=== PATIENT | female | born 1995 | race Caucasian/White ===

== ENCOUNTER → 2020-08-24 11:13 | Outpatient (BNVA) | payer SELFPAY | PROVIDERS: Family Provider Family Medicine; Visit Provider Nurse Practitioner Women's Health | DX: N92.6 Irregular menstruation, unspecified (principal); O20.0 Threatened abortion | CPT/HCPCS: 81025; 84702; 85025; 86900; 87491; 87591; 87661 ==

== ENCOUNTER → 2020-08-26 10:21 | Outpatient (BNVA) | payer BC, SELFPAY | PROVIDERS: Family Provider Family Medicine; Visit Provider Obstetrics & Gynecology | DX: O20.0 Threatened abortion (principal) | CPT/HCPCS: 84702 ==

== ENCOUNTER → 2020-08-31 08:28 | Outpatient (BNVA) | payer BC, SELFPAY | PROVIDERS: Family Provider Family Medicine; Visit Provider Nurse Practitioner Women's Health | DX: O20.0 Threatened abortion (principal) | CPT/HCPCS: 84702 ==

== ENCOUNTER → 2020-09-05 13:46 | Outpatient (BNVA) | payer BC, SELFPAY | PROVIDERS: Family Provider Family Medicine; Visit Provider Obstetrics & Gynecology | DX: O20.0 Threatened abortion (principal) | CPT/HCPCS: 84702 ==

== ENCOUNTER 2020-11-25 13:09 | Emergency (ER) | payer BC, SELFPAY ==
[2020-11-25 13:30] VITALS: BP 105/75; PULSE 128; RESP 22; TEMP 37.4; O2SAT 94; BMI 45.9
--- NOTE | 2020-11-25 13:51 | XR_ITS ---
WS: [id number] XR chest 1V portable [id number] REASON FOR EXAM: SOB, covid, tachy FINDINGS: The heart and mediastinum are within normal limits. Reticular interstitial changes seen in both lower lung couch. Bony thorax intact. XR/XR chest 1V portable [id number] IMPRESSION: Interstitial changes of unknown chronicity but compatible with acute/subacute p neumonitis.
--- NOTE | 2020-11-25 13:51 | ECG_ITS ---
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 Measurements Intervals [place] Rate: 99 P: 22 [place]: 148 QRS: 7 QRSD: 88 T: -3 QT: 322 QTc: 415 Interpretive Statements SINUS RHYTHM Compared to ECG 07/15/2015 00:14:18 Sinus tachycardia no longer present Electronically Signed On 11-25-2020 18:24:14 CDT by Sima West M.D. [email or web address]/NU/[id number] f
[2020-11-25 14:59] LABS: Basophils % 0.3 %; Eosinophils % 0.3 %; Hematocrit 43.8 % (37.0-47.0); Hemoglobin 14.2 g/dL (11.5-15.3); Lymphocytes # 1.8 10^3/uL (0.8-4.8); Lymphocytes % 30.8 %; Mean Corpuscular HGB Conc 32.4 g/dL (30.0-36.0); Mean Corpuscular Hemoglobin 26.5 pg (28.0-34.0); Mean Corpuscular Volume 81.9 fl (81-99); Mean Platelet Volume 12.1 fL (7.4-10.4); Monocytes # 0.3 10^3/uL (0.2-0.9); Monocytes % 5.6 %; Neutrophils # 3.68 10^3/uL (1.8-7.7); Nucleated Red Blood Cells % 0 %; Platelet Count 277 10^3/cmm (130-400); Red Blood Count 5.35 10^6/uL (4.1-5.3); Red Cell Distribution Width 13.3 % (12.1-15.1); White Blood Count 5.9 10^3/uL (4.0-10.0)
--- NOTE | 2020-11-25 15:02 | W.ED.COVID ---
HPI - COVID General: Chief Complaint: COVID symptoms Stated Complaint: COVID (+): COUGH, DIFF BREATHING Time Seen by Provider: 11/25/20 13:50 Triage information: No fever, cough or shortness of breath. No known COVID + exposure last 14 days History of Present Illness: HPI Narrative: Patient is a 25-year-old female no significant past medical history. She is diagnosed with COVID-19 1 week ago symptoms lasted 1 day before that this is a days ago. She is here with increasing shortness of breath. Stated that she went to outside clinic where she was noted have a pulse ox reading of 92. On arrival she was at 94 and on my exam she was at 97 with good waveform. Has had mild fevers chills aches retroorbital headache nausea no diarrhea vomiting altered mental status syncope or rash. Chart review shows that she was found to be at her last visit back in August. Not received monoclonal antibodies and she was not vaccinated COVID Results: No Data to Display Review of Systems General: Reports: 10 or more systems reviewed and unremarkable except in HPI and below PFSH ED PFSH: Medical History Irregular menses No pertinent past medical history neghx: htn,dm,thyroid,dvt/pe PCP: None Surgical History No pertinent past surgical history Family History Grandmother Diabetes Maternal Hypertension Maternal Thyroid disease Maternal Father Diabetes Denies family history of Colon cancer Ovarian cancer Heart disease Hypercholesteremia Breast cancer Uterine cancer Stroke Physical Exam Const: COMMON NORMALS: no acute distress, average body habitus, patient oriented x3, no limitations, alert and well nourished GENERAL APPEARANCE: cooperative, comfortable and ill appearing; not in distress and not anxious HENMT: COMMON NORMALS: normocephalic, atraumatic, hearing grossly normal bilaterally, external ears normal, EAC's normal, TM's normal bilaterally, Normal external nose present, Normal nasal mucous membranes and turbinates present, moist oral mucous membranes, oropharynx normal, dentition normal and gingiva normal HEAD & SCALP: normocephalic and atraumatic NOSE: Normal external nose present and Normal nasal mucous membranes and turbinates present EXTERNAL EAR: Yes external ears normal EXTERNAL AUDITORY CANAL: EAC's normal TYMPANIC MEMBRANE: TM's normal bilaterally Eye: COMMON NORMALS: Equal, round and reactive pupils present and EOMs intact bilaterally PUPIL: Yes Equal, round and reactive pupils present Resp: COMMON NORMALS: normal respiratory effort, No retractions, No use of accessory muscles and percussion normal AUSCULTATION: rhonchi PERCUSSION: percussion normal GI: COMMON NORMALS: Normal to inspection, nondistended, normoactive bowel sounds present, Soft to palpation and non-tender PALPATION: Yes Soft to palpation Extremity: COMMON NORMALS: normal to inspection, full ROM, capillary refill normal, no joint enlargement, no clubbing, cyanosis or edema, no calf tenderness and no pedal edema Neuro: COMMON NORMALS: patient oriented x3, CN's II-XII intact bilaterally, moves all extremities, no focal motor deficits, no sensory deficits noted and gait normal SENSORIUM/ORIENTATION: Yes alert Psych: COMMON NORMALS: mental status grossly normal, Normal thought process present, cooperative, normal affect, speech normal, activity/motor behavior normal, denies hallucinations, denies homicidal ideation and denies suicidal ideation SPEECH: Yes normal speech THOUGHT PROCESS: Normal thought process present Skin: COMMON NORMALS: no rashes or lesions noted, no wounds, turgor normal, no jaundice, no petechiae and no mottling GENERAL SKIN EXAM: no rashes or lesions noted and turgor normal Course ED course: Patient is oxygenating well on room air. Her D-dimer was just above the cutoff at less than thousand. According to years criteria as long she does not have any signs or symptoms of deep vein thrombosis or hemoptysis then cut off is raised 2000 and there is no need for further evaluation for pulmonary embolism. She does not have any unilateral calf tenderness she does not have a positive Homans' sign. She does not have any risk factors for DVT or PE other than . Therefore no evaluation for PE is indicated. Still waiting for chemistry and hCG Patient's hCG was negative she was aware that she had a miscarriage earlier. We discussed risks and benefits of monoclonal antibodies she does fall within the group for inclusion. She agreed to have the infusion. Because of difficulty of scheduling before the end of her 10 days we will go ahead and do that here and then discharge her afterwards. At this point she is not requiring any oxygen in no acute respiratory distress does not need any additional resuscitation and when she gets her infusion she is appropriate for discharge Vital Signs: Vital signs: Vital Signs Temperature 99.4 F 11/25/20 13:30 Pulse Rate 116 H 11/25/20 17:08 Respiratory Rate 16 11/25/20 15:04 Blood Pressure 142/87 11/25/20 17:08 Pulse Oximetry 96 11/25/20 17:08 MDM - COVID MDM Narrative: Medical decision making narrative: Patient is a 25-year-old 3-month female here with COVID-19 symptoms shortness of breath This patient is tachycardic and apparently did have some low oxygen saturations of symptoms concerns about possible pulmonary embolism. We will go ahead and get a D-dimer on her she is not requiring any oxygen is and not any respiratory distress on my exam. Will do a respiratory walk test to make sure she does not need any oxygen or tickly that she does not desat when exercising. We will recheck hCG if she is still would put her in the inclusion category 4 monoclonal antibodies which I would do anyway since her obesity. She is in no acute respiratory distress does not need any immediate airway support or resuscitation Lab Data: Labs: Lab Results 11/25/20 11/25/20 11/25/20 Range/Units 14:43 14:43 14:43 WBC 5.9 (4.0-10.0) 10^3/ uL RBC 5.35 H (4.1-5.3) 10^6/u L Hgb 14.2 (11.5-15.3) g/dL Hct 43.8 (37.0-47.0) % MCV 81.9 (81-99) fl MCH 26.5 L (28.0-34.0) pg MCHC 32.4 (30.0-36.0) g/dL RDW 13.3 (12.1-15.1) % Plt Count 277 (130-400) 10^3/c mm MPV 12.1 H (7.4-10.4) fL Neut % (Auto) 62.0 % Lymph % (Auto) 30.8 % [place] % (Auto) 5.6 % Eos % (Auto) 0.3 % Baso % (Auto) 0.3 % Neut # (Auto) 3.68 (1.8-7.7) 10^3/u L Lymph # (Auto) 1.8 (0.8-4.8) 10^3/u L [place] # (Auto) 0.3 (0.2-0.9) 10^3/u L Eos # (Auto) 0.0 (0.0-0.8) 10^3/u L Baso # (Auto) 0.0 (0.0-0.1) 10^3/u L Nucleated RBC % (a uto) 0 % Nucleated RBCs # 0.0 /100WBC D-Dimer (0-0.59) ug/mIFE U Sodium Cancelled Potassium Cancelled Chloride Cancelled Carbon Dioxide Cancelled Anion Gap Cancelled BUN Cancelled Creatinine Cancelled GFR Calculation Cancelled Glucose Cancelled Calculated Osmolal ity Cancelled Lactate 1.6 (0.5-2.2) mmol/L Calcium Cancelled Magnesium Cancelled Total Bilirubin Cancelled AST Cancelled ALT Cancelled Alkaline Phosphata se Cancelled Troponin T Gen 5 n g/L C-Reactive Protein Cancelled Total Protein Cancelled Albumin Cancelled Globulin Cancelled HCG, Qual 11/25/20 11/25/20 11/25/20 Range/Units 14:43 14:43 15:10 WBC (4.0-10.0) 10^3/ uL RBC (4.1-5.3) 10^6/u L Hgb (11.5-15.3) g/dL Hct (37.0-47.0) % MCV (81-99) fl MCH (28.0-34.0) pg MCHC (30.0-36.0) g/dL RDW (12.1-15.1) % Plt Count (130-400) 10^3/c mm MPV (7.4-10.4) fL Neut % (Auto) % Lymph % (Auto) % [place] % (Auto) % Eos % (Auto) % Baso % (Auto) % Neut # (Auto) (1.8-7.7) 10^3/u L Lymph # (Auto) (0.8-4.8) 10^3/u L [place] # (Auto) (0.2-0.9) 10^3/u L Eos # (Auto) (0.0-0.8) 10^3/u L Baso # (Auto) (0.0-0.1) 10^3/u L Nucleated RBC % (a uto) % Nucleated RBCs # /100WBC D-Dimer 0.72 H (0-0.59) ug/mIFE U Sodium Potassium Chloride Carbon Dioxide Anion Gap BUN Creatinine GFR Calculation Glucose Calculated Osmolal ity Lactate (0.5-2.2) mmol/L Calcium Magnesium Total Bilirubin AST ALT Alkaline Phosphata se Troponin T Gen 5 n g/L Cancelled C-Reactive Protein Total Protein Albumin Globulin HCG, Qual Cancelled 11/25/20 11/25/20 11/25/20 Range/Units 15:29 15:29 15:29 WBC (4.0-10.0) 10^3/ uL RBC (4.1-5.3) 10^6/u L Hgb (11.5-15.3) g/dL Hct (37.0-47.0) % MCV (81-99) fl MCH (28.0-34.0) pg MCHC (30.0-36.0) g/dL RDW (12.1-15.1) % Plt Count (130-400) 10^3/c mm MPV (7.4-10.4) fL Neut % (Auto) % Lymph % (Auto) % [place] % (Auto) % Eos % (Auto) % Baso % (Auto) % Neut # (Auto) (1.8-7.7) 10^3/u L Lymph # (Auto) (0.8-4.8) 10^3/u L [place] # (Auto) (0.2-0.9) 10^3/u L Eos # (Auto) (0.0-0.8) 10^3/u L Baso # (Auto) (0.0-0.1) 10^3/u L Nucleated RBC % (a uto) % Nucleated RBCs # /100WBC D-Dimer (0-0.59) ug/mIFE U Sodium 136 Potassium 4.4 Chloride 100 Carbon Dioxide 23 Anion Gap 17.4 BUN 7 Creatinine 0.5 GFR Calculation 149.1 H Glucose 130 H Calculated Osmolal ity 282 L Lactate (0.5-2.2) mmol/L Calcium 9.0 Magnesium 1.9 Total Bilirubin 0.2 AST 92 H ALT 106 H Alkaline Phosphata se 76 Troponin T Gen 5 n g/L 6 C-Reactive Protein 39.9 H Total Protein 7.4 Albumin 4.1 Globulin 3.3 HCG, Qual Negative COVID Results: No Data to Display Monoclonal Antibody - ED Inclusion/Exclusion Criteria age >/= 12 years obesity (BMI >25 or 85%til for age) not requiring hospitalization, not requiring oxygen (if not chronically on oxygen) and no increase oxygen requirement (if chronically on oxygen) Patient education patient/family/caregiver received/reviewed fact sheet, Emergency Use Authorization/unapproved drug status discussed with patient/family/caregiver, alternatives to this treatment discussed with patient/family/caregiver, risks and benefits of medication reviewed with patient/family/caregiver, patient/family/caregiver given opportunity for questions, which were answered and patient consents to receiving Monoclonal Antibody Treatment Plan for treatment Meets criteria for Monoclonal Antibody infusion Date of symptom(s) onset: 11/17/20 Where are the positive COVID test results, if positive?: Resulted in [facility] Ordering Monoclonal Antibody infusion for another day Discharge Plan Discharge Patient Disposition: Home Clinical Impression: COVID-19 Condition: Stable Prescriptions: No Action Tylenol Extra Strength 500 mg Tablet 1,000 mg PO Q4H PRN (Reason: Pain) RF: 0 ibuprofen 200 mg Tablet 800 mg PO Q4H PRN (Reason: Pain) RF: 0 Cough and Cold Formula Tablet 2 tab PO Q6H PRN (Reason: Congestion) RF: 0 Zinc With Vitamin C And D 1 tab PO DAILY RF: 0 Discharge Orders: Discharge ED (Routine); Ordered 11/25/20 Ordered By: Sushil Chris Patient Instructions: Community-acquired Pneumonia (ED) Activity Restrictions/Additional Instructions: Take medication as prescribed. 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
[2020-11-25 15:04] VITALS: BP 100/74; PULSE 116; RESP 16; O2SAT 96
[2020-11-25 15:14] LABS: Lactate (Lactic Acid level) 1.6 mmol/L (0.5-2.2)
[2020-11-25 15:33] LABS: D Dimer 0.72 ug/mIFEU (0-0.59)
[2020-11-25 16:09] LABS: HCG, Serum Qual Negative (Negative)
[2020-11-25 16:12] LABS: Troponin T (5th) Once 6 ng/L (0-10)
[2020-11-25 16:18] LABS: Alanine Aminotransferase 106 U/L (0-33); Albumin Level 4.1 g/dL (3.5-5.2); Alkaline Phosphatase 76 IU/L (35-105); Anion Gap 17.4 (5-19); Aspartate Amino Transferase 92 U/L (0-32); Blood Urea Nitrogen 7 mg/dL (6-20); C Reactive Protein 39.9 mg/L (0.0-4.9); Carbon Dioxide 23 mmol/L (22-29); Chloride 100 mmol/L (98-107); Globulin 3.3 g/dL (1.3-4.6); Glomerular Filtration Rate 149.1 mL/min (90-130); Glucose 130 mg/dL (65-115); Magnesium 1.9 mg/dL (1.7-2.3); Osmolality Calculated 282 mOsm/kg (285-295); Potassium 4.4 mmol/L (3.5-5.1); Sodium 136 mmol/L (136-145); Total Bilirubin 0.2 mg/dL (0.15-1.2); Total Protein 7.4 g/dL (6.6-8.7)
[2020-11-25 17:08] VITALS: BP 142/87; PULSE 116; O2SAT 96
[2020-11-25 18:41] VITALS: BP 109/89; PULSE 114; O2SAT 96
[2020-11-25 19:33] VITALS: BP 129/82; PULSE 112; RESP 20; O2SAT 96
== END 2020-11-25 19:36 | disposition home or self-care (01) ==
PROVIDERS: Emergency Provider Family Medicine
DX: U07.1 COVID-19 (principal)
CPT/HCPCS: 71045; 80053; 83605; 83735; 84484; 84703; 85025; 85378; 86140; 93005; 96365; 99284

== ENCOUNTER 2021-07-12 16:28 | Emergency (ER) | payer SELFPAY ==
[2021-07-12] VITALS (12 sets, daily range): BP systolic 117–145; BP diastolic 72–98; PULSE 69–92; RESP 16–18; TEMP 36.4; O2SAT 95–99
[2021-07-12 19:09] LABS: Add Urine Microscopic? NO; Charge for UA Resulting for Rev
[2021-07-12 19:13] LABS: Basophils # 0.1 10^3/uL (0.0-0.1); Basophils % 0.5 %; Eosinophils # 0.2 10^3/uL (0.0-0.8); Eosinophils % 1.7 %; Hematocrit 39.7 % (37.0-47.0); Hemoglobin 12.3 g/dL (11.5-15.3); Lymphocytes # 3.1 10^3/uL (0.8-4.8); Lymphocytes % 25.8 %; Mean Corpuscular Volume 83.9 fl (81-99); Mean Platelet Volume 11.2 fL (7.4-10.4); Monocytes # 0.6 10^3/uL (0.2-0.9); Monocytes % 4.7 %; Neutrophils # 7.91 10^3/uL (1.8-7.7); Nucleated Red Blood Cells % 0 %; Platelet Count 405 10^3/cmm (130-400); Red Blood Count 4.73 10^6/uL (4.1-5.3); Red Cell Distribution Width 13.3 % (12.1-15.1); White Blood Count 11.8 10^3/uL (4.0-10.0)
[2021-07-12 19:23] LABS: Bilirubin Urine Neg (Negative); Blood Urine Neg (Negative); Glucose Urine UA Norm (Normal); Ketones Urine Negative (Negative); Leukocyte Esterase Urine Negative (Negative); Nitrate Urine Negative (Negative); Protein Urine Neg (Negative); Urine Appearance SL Hazy (CLEAR); Urine Color Colorless (Yellow); Urobilinogen Urine Norm (Negative); pH Urine 6.5 (5-7)
--- NOTE | 2021-07-12 19:42 | CTR_ITS ---
PROCEDURE INFORMATION: Exam: CT Abdomen And Pelvis Without Contrast Exam date and time: 07/12/2021 8:32 PM Age: 25 years old Clinical indication: Abdominal pain; Localized; Left; Prior surgery; Additional info: Flink pain TECHNIQUE: Imaging protocol: Computed tomography of the abdomen and pelvis without contrast. Axial, coronal and sagittal reformatted images were created and reviewed. Radiation optimization: All CT scans at this facility use at least one of these dose optimization techniques: automated exposure control; mA and/or kV adjustment per patient size (includes targeted exams where dose is matched to clinical indication); or iterative reconstruction. COMPARISON: CR Abdomen Series Acute [id number] 04/30/2017 11:25 AM RADIATION DOSE METRICS: Total DLP (mGy-cm): 1731.39 FINDINGS: Liver: Unremarkable. Gallbladder and bile ducts: No radiodense gallstones. No biliary ductal dilatation. Pancreas: Unremarkable. Spleen: Unremarkable. Adrenal glands: Normal. No mass. Kidneys and ureters: No mass. No radiodense calculi. No hydronephrosis. Stomach and bowel: Mild fecal distention of the rectal vault. No definite bowel wall thickening. No obstruction. No pneumatosis. Appendix: Normal. Intraperitoneal space: No free fluid. No organized fluid collection. No free air. Vasculature: Unremarkable. No aneurysm. Lymph nodes: No pathologically enlarged lymph nodes. Urinary bladder: Unremarkable as visualized. Reproductive: 17.5 x 11.7 cm right adnexal cystic lesion with probable associated hydrosalpinx. Bones/joints: No acute osseous abnormality. Soft tissues: Small, fat containing umbilical hernia. CT/CT kidney stone [id number] IMPRESSION: 1. 17.5 x 11.7 cm right adnexal cystic lesion with probable associated hydrosalpinx. Pelvic ultrasound is suggested for further evaluation. 2. Additional findings, as above.
[2021-07-12 19:46] LABS: Alanine Aminotransferase 39 U/L (0-33); Albumin Level 4.6 g/dL (3.5-5.2); Alkaline Phosphatase 71 IU/L (35-105); Anion Gap 16.1 (5-19); Aspartate Amino Transferase 20 U/L (0-32); Blood Urea Nitrogen 14 mg/dL (6-20); Calcium 9.6 mg/dL (8.5-10.5); Carbon Dioxide 24 mmol/L (22-29); Chloride 102 mmol/L (98-107); Globulin 4.1 g/dL (1.3-4.6); Glomerular Filtration Rate 149.1 mL/min (90-130); Glucose 109 mg/dL (65-115); Lipase 15 U/L (13-60); Osmolality Calculated 287 mOsm/kg (285-295); Potassium 4.1 mmol/L (3.5-5.1); Sodium 138 mmol/L (136-145); Total Bilirubin 0.3 mg/dL (0.15-1.2); Total Protein 8.7 g/dL (6.6-8.7)
--- NOTE | 2021-07-12 19:47 | ED_ITS ---
HPI - Abdominal Pain General: Chief Complaint: Abdominal Pain Stated Complaint: Severe abdominal pain Time Seen by Provider: 07/12/21 19:36 Source: patient Mode of arrival: ambulatory Limitations: no limitations History of Present Illness: 25-year-old female states been having some right- sided flank pain radiates into her abdomen over the last day. States that its been episodic in nature and does worsen states she will get some spasm-like pains that are severe that will be a 9 out of 10 states pain currently is a 6 out of 10 states its not worse with palpation or movement she states disability is on the inside denies any dysuria denies any vaginal discharge denies any vaginal bleeding. Associated Symptoms: Denies chills and fever(s) Related Data: Date of Last Menstrual Period: 07/08/21 Review of Systems Const: Denies: fever(s), chills, body aches or change in appetite Eyes: Denies: blurry vision or eye discomfort ENMT: Denies: throat pain or dental pain Card: Denies: chest pain Resp: Denies: dyspnea GI: Reports: abdominal pain : Reports: flank pain Musc: Denies: neck pain or back pain Skin/Breast: Denies: rash Neuro: Denies: headache(s) Psych: Denies: depression [place]/Lymph: Denies: easy bruising All/Imm: Denies: urticaria PFSH ED PFSH: Medical History Irregular menses No pertinent past medical history neghx: htn,dm,thyroid,dvt/pe PCP: None Surgical History No pertinent past surgical history Family History Grandmother Diabetes Maternal Hypertension Maternal Thyroid disease Maternal Father Diabetes Denies family history of Colon cancer Ovarian cancer Heart disease Hypercholesteremia Breast cancer Uterine cancer Stroke Female Reproductive History: Date of last menstrual period: 07/08/21 Physical Exam Const: COMMON NORMALS: no acute distress, patient oriented x3 and healthy appearing HENMT: COMMON NORMALS: normocephalic and atraumatic HEAD & SCALP: normocephalic and atraumatic Eye: COMMON NORMALS: Equal, round and reactive pupils present and EOMs intact bilaterally PUPIL: Yes Equal, round and reactive pupils present Neck/C-Spine: COMMON NORMALS: full ROM and supple Chest: COMMONS NORMALS: normal inspection of the chest and normal palpation of entire chest wall Resp: COMMON NORMALS: normal respiratory effort, No retractions, No use of accessory muscles and clear to auscultation bilaterally AUSCULTATION: clear to auscultation bilaterally Cardio: COMMON NORMALS: regular rate, regular rhythm and No murmurs present (Cardio) RATE: regular rate RHYTHM: regular rhythm GI: COMMON NORMALS: Normal to inspection, nondistended, normoactive bowel sounds present, Soft to palpation, non-tender and no masses PALPATION: Yes Soft to palpation Extremity: COMMON NORMALS: normal to inspection and full ROM Neuro: COMMON NORMALS: patient oriented x3, moves all extremities and no focal motor deficits Psych: COMMON NORMALS: mental status grossly normal, Normal thought process present and cooperative THOUGHT PROCESS: Normal thought process present Skin: COMMON NORMALS: no rashes or lesions noted and no wounds GENERAL SKIN EXAM: no rashes or lesions noted Course Vital Signs: Vital signs: Vital Signs Temperature 97.6 F 07/12/21 17:14 Pulse Rate 73 07/12/21 20:48 Respiratory Rate 18 07/12/21 23:19 Blood Pressure 132/79 07/12/21 20:48 Pulse Oximetry 96 07/12/21 23:19 MDM - Abdominal Pain Medical Decision Making Patient presents here with abdominal pain she is found to have an ovarian cyst no signs of torsion she does not really have any symptoms of PID but will treat with antibiotics for possible infection no signs of abscess I did speak to OB Dr. Arriaza will get patient follow-up this week she is return if worsening she understands agrees to plan. Lab Data : 07/12/21 18:55 07/12/21 18:55 Labs/Radiology: Radiology Impressions Abdomen/Pelvis CT 07/12/21 19:42 IMPRESSION: 1. 17.5 x 11.7 cm right adnexal cystic lesion with probable associated hydrosalpinx. Pelvic ultrasound is suggested for further evaluation. 2. Additional findings, as above. Laboratory Results WBC 11.8 10^3/uL (4.0-10.0) H 07/12/21 18:55 RBC 4.73 10^6/uL (4.1-5.3) 07/12/21 18:55 Hgb 12.3 g/dL (11.5-15.3) 07/12/21 18:55 Hct 39.7 % (37.0-47.0) 07/12/21 18: MCV 83.9 fl (81-99) 07/12/21 18:55 MCH 26.0 pg (28.0-34.0) L 07/12/21 18: MCHC 31.0 g/dL (30.0-36.0) 07/12/21 18: RDW 13.3 % (12.1-15.1) 07/12/21 18: Plt Count 405 10^3/cmm (130-400) H 07/12/21 18: MPV 11.2 fL (7.4-10.4) H 07/12/21 18:55 Neut % (Auto) 67.0 % 07/12/21 18: Lymph % (Auto) 25.8 % 07/12/21 18: [place] % (Auto) 4.7 % 07/12/21 18: Eos % (Auto) 1.7 % 07/12/21 18: Baso % (Auto) 0.5 % 07/12/21 18: Neut # (Auto) 7.91 10^3/uL (1.8-7.7) H 07/12/21 18: Lymph # (Auto) 3.1 10^3/uL (0.8-4.8) 07/12/21 18: [place] # (Auto) 0.6 10^3/uL (0.2-0.9) 07/12/21 18: Eos # (Auto) 0.2 10^3/uL (0.0-0.8) 07/12/21 18: Baso # (Auto) 0.1 10^3/uL (0.0-0.1) 07/12/21 18: Nucleated RBC % (auto) 0 % 07/12/21 18: Nucleated RBCs # 0.0 /100WBC 07/12/21 18: Sodium 138 mmol/L (136-145) 07/12/21 18: Potassium 4.1 mmol/L (3.5-5.1) 07/12/21 18:55 Chloride 102 mmol/L (98-107) 07/12/21 18:55 Carbon Dioxide 24 mmol/L (22-29) 07/12/21 18:55 Anion Gap 16.1 (5-19) 07/12/21 18:55 BUN 14 mg/dL (6-20) 07/12/21 18:55 Creatinine 0.5 mg/dL (0.5-0.9) 07/12/21 18:55 GFR Calculation 149.1 mL/min (90-130) H 07/12/21 18:55 Glucose 109 mg/dL (65-115) 07/12/21 18:55 Calculated Osmolality 287 mOsm/kg (285-295) 07/12/21 18:55 Calcium 9.6 mg/dL (8.5-10.5) 07/12/21 18:55 Total Bilirubin 0.3 mg/dL (0.15-1.2) 07/12/21 18:55 AST 20 U/L (0-32) 07/12/21 18:55 ALT 39 U/L (0-33) H 07/12/21 18:55 Alkaline Phosphatase 71 IU/L (35-105) 07/12/21 18:55 Total Protein 8.7 g/dL (6.6-8.7) 07/12/21 18:55 Albumin 4.6 g/dL (3.5-5.2) 07/12/21 18:55 Globulin 4.1 g/dL (1.3-4.6) 07/12/21 18:55 Lipase 15 U/L (13-60) 07/12/21 18:55 HCG, Qual Negative (Negative) 07/12/21 19:45 Urine Color Colorless (Yellow) 07/12/21 18:50 Urine Appearance Sl hazy (CLEAR) 07/12/21 18:50 Urine pH 6.5 (5-7) 07/12/21 18:50 Ur Specific [place] 1.010 (1.005-1.030) 07/12/21 18:50 Urine Protein Neg (Negative) 07/12/21 18:50 Urine Glucose (UA) Norm (Normal) 07/12/21 18:50 Urine Ketones Negative (Negative) 07/12/21 18:50 Urine Blood Neg (Negative) 07/12/21 18:50 Urine Nitrate Negative (Negative) 07/12/21 18:50 Urine Bilirubin Neg (Negative) 07/12/21 18:50 Urine Urobilinogen Norm mg/dL (Negative) 07/12/21 18:50 Ur Leukocyte Esterase Negative (Negative) 07/12/21 18:50 Discharge Plan Discharge Patient Disposition: Home Clinical Impression: Adnexal cyst Condition: Stable Prescriptions: New hydrocodone-acetaminophen 5-325 mg tablet 1 tab PO Q6H PRN (Reason: pain) Qty: 14 0RF ondansetron 4 mg tablet,disintegrating 4 mg PO Q6H PRN (Reason: nausea and vomiting) Qty: 14 0RF doxycycline hyclate 100 mg tablet 100 mg PO BID 10 Days Qty: 20 0RF No Action Tylenol Extra Strength 500 mg Tablet 1,000 mg PO Q4H PRN (Reason: Pain) 0RF ibuprofen 200 mg Tablet 800 mg PO Q4H PRN (Reason: Pain) 0RF Cough and Cold Formula Tablet 2 tab PO Q6H PRN (Reason: Congestion) 0RF Zinc With Vitamin C And D 1 tab PO DAILY 0RF Discharge Orders: Discharge ED (Routine); Ordered 07/12/21 Ordered By: Emerita Bond Referrals: Eladio Arriaza MD [Physician] - 1-3 days Discharge Diet: Advance as tolerated Discharge Activity: Resume usual activity Patient Instructions: Ovarian Cyst (ED) Coding Level of Care Code ED Cut Tobacco Bulker for Chg Fwd Exam Comprehensive
[2021-07-12] MEDS: ondansetron 2 mg/ML SDV 2 mL 4 MG IVP (19:58)
[2021-07-12] MEDS: morphine 4 mg/mL SDV 1 mL IVP (19:59)
[2021-07-12 20:18] LABS: HCG, Serum Qual Negative (Negative)
--- NOTE | 2021-07-12 21:22 | USR_ITS ---
PROCEDURE INFORMATION: Exam: US Pelvis Complete, Transabdominal and US Pelvis, Transvaginal Exam date and time: 07/12/2021 9:37 PM Age: 25 years old Clinical indication: Pelvic pain; Additional info: Abd pain TECHNIQUE: Imaging protocol: Real-time transabdominal and transvaginal pelvic ultrasound (complete) with image documentation. Transvaginal imaging was used for better evaluation of the endometrium, adnexa, and/or cervix. COMPARISON: CT kidney stone [id number] 07/12/2021 8:32 PM FINDINGS: Uterus: Uterus has normal size and configuration measuring 8.8 x 4.1 x 6.1 cm. Endometrial stripe measures up to 7 mm in thickness. Right ovary/adnexa: Right ovarian/adnexal large mildly complex cystic mass measuring at least 12 x 18 x 16 cm with thin septations inferiorly. Non-cystic portion of the right ovary measures approximately 4 x 5 x 4 cm and demonstrates vascular flow. Left ovary/adnexa: Left ovary measures 1.9 x 1.7 x 1.6 cm and demonstrates vascular flow. Intraperitoneal space: No significant free pelvic fluid. Urinary bladder: Unremarkable incompletely distended urinary bladder. US/US pelvic with transvaginal IMPRESSION: 1. No evidence of ovarian torsion. 2. Right ovarian/adnexal large mildly complex cystic mass measuring at least 12 x 18 x 16 cm with thin septations inferiorly. Consider surgical referral.
[2021-07-12] MEDS: HYDROmorphone 1 mg/mL INJ 1 mL IVP (23:19)
[2021-07-13] VITALS: BP 121/104; PULSE 87; RESP 18; O2SAT 96
[2021-07-13 00:20] VITALS: BP 111/76; PULSE 76; RESP 18; O2SAT 96
--- NOTE | 2021-07-13 22:30 | DCPLANNER ---
Addendum entered by Lou Bruno 07/27/21 14:17: Patient had a follow up appointment scheduled for 07.14.21 with [facility] - patient did attend appointment. Original Note: manager diversity had message to schedule a follow [facility] appointment for [facility] with [facility]. manager diversity sent patients information to the front office staff at [facility]. Patients information will be printed and reviewed. Clinic will call patient with appointment information.
== END 2021-07-13 00:20 | disposition home or self-care (01) ==
PROVIDERS: Physician Assistant; Emergency Provider Emergency Medicine
DX: N83.291 Other ovarian cyst, right side (principal)
CPT/HCPCS: 74176; 76830; 76856; 80053; 81003; 83690; 84703; 85025; 96374; 96375; 99284; J1170; J2270; J2405

== ENCOUNTER → 2021-07-17 09:04 | Day surgery (SDC) | payer SELFPAY | PROVIDERS: Visit Provider Obstetrics & Gynecology | DX: Z01.812 Encounter for preprocedural laboratory examination (principal); N83.201 Unspecified ovarian cyst, right side; N92.6 Irregular menstruation, unspecified | CPT/HCPCS: 80053; 81000; 81025; 83036; 85025; 86850; 86900 ==

== ENCOUNTER 2021-07-20 14:36 | Observation (INO) | payer SELFPAY ==
[2021-07-19 11:58] VITALS: BMI 44.0
[2021-07-20] VITALS (17 sets, daily range): BP systolic 114–141; BP diastolic 63–86; PULSE 56–96; RESP 10–18; TEMP 36.3–36.8; O2SAT 83–99
[2021-07-20] MEDS: scopolamine 1.5 Patch 1 PATCH TRANSDERMA (11:03)
[2021-07-20] MEDS: sodium chloride 0.9% 1,000 ML 30 ML IV (11:03)
[2021-07-20] MEDS: enoxaparin 30 mg/0.3 mL Syringe SUBCUT (11:03)
[2021-07-20] MEDS: sodium chloride 0.9% 500 ML IV (11:04)
[2021-07-20 11:24] LABS: Glucose Point of Care 112 mg/dL (70-110)
--- NOTE | 2021-07-20 11:24 | W.PM.OPSUD ---
Surgery/Procedure H&P Update DATE OF PROCEDURE: July 20, 2021 DATE H&P PERFORMED: 07/14/21 H&P UPDATE INFORMATION: I have reviewed H&P completed within last 30 days, I have examined patient prior to procedure and No changes to prior documentation PREOP DIAGNOSIS: Right ovarian mass PLANNED PROCEDURE: Operation Date: 07/20/21 12:00 Proposed Procedures p Right Oophorectomy (Open)(Right) - Eladio Arriaza MD
--- NOTE | 2021-07-20 11:37 | ANES.PREANE2 ---
Pre-Anesthetic Assessment Height/Weight: Height 1.8 m Weight 143.335 kg Temp Pulse Resp BP Pulse Ox 97.8 F 96 16 114/81 96 07/20/21 11:15 07/20/21 11:15 07/20/21 11:15 07/20/21 11:15 07/20/21 11:15 Preop Diagnosis: Right ovarian mass Operation Date: 07/20/21 12:00 Proposed Procedures p Right Oophorectomy (Open)(Right) - Eladio Arriaza MD Familial anesthetic complications: None Was Beta Jazmin taken within 24 hours: N/A Was Clonidine taken within 24 hours: N/A Last intake: Intake Last Liquid Date 07/19/21 Last Liquid Time 23:30 Last Solid Date 07/19/21 Last Solid Time 18:30 Social No alcohol and No tobacco Exam alert, oriented x 3, clear to auscultation bilaterally and regular rate & rhythm Airway Submandibular: within normal limits Cervical ROM: within normal limits Mallampati: Class I Dentition: full History/ROS No significant complaints Pulmonary None reported CV/HEM Hypertension None reported Hepatic None reported GI None reported Metabolic Diabetes Mellitus and Morbid Obesity [facility] [place] None reported Neuropsych None reported Anesthetic Plan ASA status: 3 (25 year old morbidly obese female with HTN and DM ) Anesthesia: Anesthesia Evaluation and General Other: We discussed risk and benefits of general anesthesia including PONV, sore throat (sometimes severe), corneal abrasion, positioning and peripheral nerve injuries, life threatening allergic reaction, post operative ICU admission requiring prolonged intubation, stroke, heart attack, , and rare incidences of recall. Patient consents to proceed with general anesthesia. Risk of > 500 ml blood loss (7ml/kg in children): No Medications/Allergies Home Medications Medication Instructions Recorded Confirmed Last Taken Type acetaminophen 500 mg tablet 1,000 mg PO Q4H PRN 11/25/20 07/19/21 11/25/20 08:00 History (Tylenol Extra Strength) ibuprofen 200 mg tablet 800 mg PO Q4H PRN 11/25/20 07/20/21 07/19/21 20:00 History doxycycline hyclate 100 mg tablet 100 mg PO BID 10 Days #20 tab 07/12/21 07/20/21 07/19/21 20:00 Rx hydrocodone 5 mg-acetaminophen 325 1 tab PO Q6H PRN #14 tab 07/12/21 07/19/21 Unknown Rx mg tablet ondansetron 4 mg disintegrating 4 mg PO Q6H PRN #14 tab 07/12/21 07/19/21 Unknown Rx tablet atorvastatin 20 mg PO DAILY 07/14/21 07/20/21 07/19/21 20:00 History lisinopril 10 mg tablet 2.5 mg PO DAILY 07/14/21 07/20/21 07/19/21 08:00 History metformin 500 mg tablet 500 mg PO BID 07/14/21 07/20/21 07/19/21 20:00 History Allergies Allergy/AdvReac Type Severity Reaction Status Date / Time No Known Allergies Allergy Verified 07/17/21 10:21 Current Medications Generic Name Dose Route Start Last Admin Trade Name Freq PRN Reason Stop Dose Admin Sodium Chloride 1,000 mls @ 30 mls/hr 07/20/21 11:00 07/20/21 11:03 Sodium Chloride 0.9% IV 07/21/21 10:59 30 mls/hr .Q24H JENNIFER Administration Sodium Chloride 500 mls @ 500 mls/hr 07/20/21 10:53 07/20/21 11:04 Sodium Chloride 0.9% IV 07/20/21 11:52 500 mls/hr ONCE ONE Administration PFSH Anesthesia Medical History Irregular menses No pertinent past medical history neghx: htn,dm,thyroid,dvt/pe PCP: None Surgical History No pertinent past surgical history Family History (Updated 07/14/21 @ 13:31 by Alpa Martinez RN) Grandmother Diabetes Maternal Hypertension Maternal Thyroid disease Maternal Father Diabetes Mother Heart disease Hypertension Denies family history of Colon cancer Ovarian cancer Clotting disorder Hypercholesteremia Hyperlipidemia Breast cancer Anesthesia complication Bleeding disorder Uterine cancer Stroke Female Reproductive History Date of last menstrual period: 07/11/21 Data Anesthesia Cardiac Studies: No Data to Display
[2021-07-20] MEDS: ceFAZolin 1,000 MG in sodium chloride 0.9% (plus) 50 ML 100 MG IV (11:38)
[2021-07-20] MEDS: sodium chloride 0.9% 100 mL Bag XX (12:05)
--- NOTE | 2021-07-20 13:16 | PM.OP ---
Operative Report Date of procedure: July 20, 2021 Pre-op diagnosis: Preop Diagnosis Right ovarian mass Post-op diagnosis: Right hydrosalpinx Post-op findings: Right hydrosalpinx Procedure done: Rightl salpingectomy Specimens removed/disposition: Right fallopian hydrosalpinx Surgeon: Eladio Arriaza MD Estimated blood loss (mL): 100 IV fluids (mL): 700 Urine output (mL): 200 Complications: None Findings: Dilated right hydrosalpinx Brief History: 25-year-old evaluated in the emergency room due to pelvic pain had a tentative diagnosis of right ovarian cystic mass approximately 20 cm. Procedure: After assuring informed consent, the patient was taken to the operating room and anesthesia was initiated. She was placed in the dorsal supine position with a left lateral tilt. The abdomen was prepped and draped in the usual sterile manner. A time-out procedure was performed. A Pfannenstiel skin incision was made with the scalpel and carried through to the underlying layer of fascia with the Bovie. The fascia was nicked in the midline and the incision extended laterally with the Rivas scissors. The superior aspect of the fascial incision was then grasped with Korina clamps and elevated and the underlying rectus muscle dissected off bluntly. Attention was then turned to the inferior aspect of the incision which, in similar fashion, was grasped and tented up with Korina clamps and the rectus muscle dissected bluntly. The rectus muscles were then in the midline and the peritoneum identified, tented up and entered sharply with Metzenbaum scissors. The peritoneal incision was then extended superiorly and inferiorly with good visualization of the bladder. Large cystic mass was noted. Incision had to be extended bilaterally to allow the mass to be excised. After the mass was externalized it was noticed that it was a hydrosalpinx the right ovary was intact. Using the Enseal device the hydrosalpinx was grasped, clamped, sealed. and cut. The excised cystic hydrosalpinx was sent to pathology. The uterus, both ovaries and left fallopian tube appeared normal. Cavity was irrigated. Then the rectus muscles were approximated with 3-0 chromic gut. The ON-Q pain management system placed. The fascia was reapproximated with 0 Vicryl in an interrupted running fashion. The skin was closed with Insorb?s subcuticular absorbable violet. The patient tolerated the procedure well. The sponge, lap and needle counts were correct times three.
[2021-07-20] MEDS: HYDROmorphone 1 mg/mL INJ 1 mL 0.5 MG IVP (13:27)
[2021-07-20] MEDS: HYDROcodone-acetaminophen 5-325 mg Tablet 1 TAB PO (14:01)
--- NOTE | 2021-07-20 14:54 | ANE.PACU2 ---
Inpatient post-anesthesia follow up: Airway intact: Yes Vital signs: Temperature 97.4 F Pulse Rate 70 Respiratory Rate 11 Blood Pressure 122/78 Pulse Oximetry 94 Oxygen Delivery Me thod Room Air Oxygen Flow Rate 6 Fraction of Inspir ed Oxygen Hydration adequate: Yes Nausea and vomiting: No Pain level: 3 Mental status: Baseline
[2021-07-20] MEDS: ondansetron 2 mg/ML SDV 2 mL 4 MG IVP (15:08)
[2021-07-20] MEDS: dextrose 5%-lactated ringers 1,000 ML 125 ML IV ×2 (15:09→23:11)
[2021-07-20] MEDS: fentaNYL 50 mcg/mL INJ 2mL IVP (18:33)
[2021-07-20] MEDS: ketorolac 30 mg/mL INJ IVP (20:56)
[2021-07-20] MEDS: docusate sodium 100 mg Capsule PO (20:57)
[2021-07-20] MEDS: metformin 500 mg Tablet PO (20:57)
[2021-07-20] MEDS: doxycycline 100 mg Tablet PO (20:57)
[2021-07-21] MEDS: ketorolac 30 mg/mL INJ IVP ×2 (02:02→08:40)
[2021-07-21 03:00] VITALS: BP 96/61; PULSE 72; RESP 15; TEMP 36.6; O2SAT 94
[2021-07-21 06:18] LABS: Hematocrit 33.3 % (37.0-47.0); Hemoglobin 10.6 g/dL (11.5-15.3); Mean Corpuscular HGB Conc 31.8 g/dL (30.0-36.0); Mean Corpuscular Hemoglobin 26.7 pg (28.0-34.0); Mean Corpuscular Volume 83.9 fl (81-99); Mean Platelet Volume 11.9 fL (7.4-10.4); Platelet Count 301 10^3/cmm (130-400); Red Blood Count 3.97 10^6/uL (4.1-5.3); Red Cell Distribution Width 13.5 % (12.1-15.1); White Blood Count 14.3 10^3/uL (4.0-10.0)
--- NOTE | 2021-07-21 07:09 | PC.NURSE ---
Patient up ambulating hallways. This RN notified by patient she has passed gas. DARIEN RN
[2021-07-21 07:33] LABS: Glucose Point of Care 124 mg/dL (70-110)
[2021-07-21 08:30] VITALS: BP 103/75; PULSE 77; RESP 14; TEMP 36.6; O2SAT 97
[2021-07-21] MEDS: metformin 500 mg Tablet PO ×2 (08:39→19:01)
[2021-07-21] MEDS: docusate sodium 100 mg Capsule PO ×2 (08:40→19:01)
[2021-07-21] MEDS: lisinopril 2.5 mg Tablet PO (08:40)
[2021-07-21] MEDS: doxycycline 100 mg Tablet PO ×2 (08:40→19:01)
[2021-07-21] MEDS: atorvastatin 40 mg Tablet 20 MG PO (08:40)
--- NOTE | 2021-07-21 08:55 | PC.NURSE ---
Patient states she voided outside of urine hat. Urine hat total 100 ml
[2021-07-21 11:47] LABS: Glucose Point of Care 131 mg/dL (70-110)
--- NOTE | 2021-07-21 12:50 | P.PN_ITS ---
Subjective Subjective: Mrs. Brady wilson 25-year-old female G1, P0 status post exploratory laparotomy right salpingectomy day 1. Referred feeling better this morning. Pain under control. Vitals/I&O/Wt Last Vital Signs Temp 97.9 F 07/21/21 08:30 Pulse 77 07/21/21 08:30 Resp 14 07/21/21 08:30 BP 103/75 07/21/21 08:30 Pulse Ox 97 07/21/21 08:30 07/20/21 07/21/21 07/21/21 22:59 06:59 14:59 Intake Total 1000 / 2400 Output Total 2600 / 3100 1300 / 4400 100 / 100 Balance -2600 / -1700 -300 / -2000 -100 / -100 Physical Exam Narrative: GA: Alert and oriented ?3. HEENT: WNL. Heart: Regular rate and rhythm. Lungs: Clear to auscultation bilaterally. Abdomen: Bowel sounds present, nontender, minimal tenderness, incision clean and dry, no redness, pain or edema. ROTOR BALANCER: No bleeding. Extremities: No edema, no cyanosis, no calves pain. Urinary Catheter Management: Hopkins Latex: Cath Placed During This Visit: yes, but has since been removed by the nurse Reason for Continuing Indwelling Catheter: Perioperative Use in Selected Surgeries Urinary Catheter Date of Insertion: 07/20/21 Urinary Catheter Time of Insertion: 11:50 Date Urinary Catheter Removed: 07/21/21 Time Urinary Catheter Discontinued: 05:30 Data : 07/21/21 05:40 A&P Assessment and plan (1) Status post exploratory laparotomy: Mrs. Olivo 25-year-old female G1, P0 with a history of persistent right adnexal cystic mass. Admitted for planned exploratory laparotomy for possible right oophorectomy. During surgery right ovaries found to be normal with a large hydrosalpinx. She is sttus post right salpingectomy postoperative day 1, afebrile and hemodynamically stable. Tolerating diet well. Ambulating without difficulty. Status: Acute Plan Postop observation Attestations Medical Necessity Statement*: In my professional opinion per admitting diagnosis Coding Level of Care Code Acute Joy Loading Machine Operator for g Fwd Diagnoses Status post exploratory laparotomy Z98.890
[2021-07-21 14:45] LABS: Glucose Point of Care 104 mg/dL (70-110)
[2021-07-21] MEDS: ibuprofen 800 mg tablet PO ×2 (14:45→21:16)
[2021-07-21 15:00] VITALS: BP 106/74; PULSE 77; RESP 15; TEMP 36.7; O2SAT 99
[2021-07-21 19:49] LABS: Glucose Point of Care 108 mg/dL (70-110)
[2021-07-21 21:17] VITALS: BP 102/67; PULSE 90; RESP 16; O2SAT 95
[2021-07-22] MEDS: HYDROcodone-acetaminophen 5-325 mg Tablet PO ×2 (00:55→13:40)
[2021-07-22 05:09] VITALS: BP 119/70; PULSE 80; RESP 16; TEMP 36.7
[2021-07-22] MEDS: ondansetron 4 MG Tablet PO (09:15)
[2021-07-22] MEDS: metformin 500 mg Tablet PO (09:15)
[2021-07-22] MEDS: lisinopril 2.5 mg Tablet PO (09:15)
[2021-07-22] MEDS: docusate sodium 100 mg Capsule PO (09:15)
[2021-07-22] MEDS: doxycycline 100 mg Tablet PO (09:15)
[2021-07-22 11:07] LABS: Glucose Point of Care 84 mg/dL (70-110)
--- NOTE | 2021-07-22 12:47 | PM.OBGYDC ---
Discharge Providers HUMAN RESOURCES TEAM MEMBER Date of Admission: 07/20/21 14:36 Date of Discharge: 07/22/21 Attending Provider at Admission: Eladio Arriaza MD Attending Provider at Discharge: Eladio Arriaza MD Primary HUMAN RESOURCES TEAM MEMBER: Eladio Arriaza MD Diagnoses at Discharge Discharge Diagnosis (1) Status post exploratory laparotomy: Status: Acute Reason for Visit Reason for Visit: Brief History: Mrs. Safia wilson 25-year-old female G1, P0 with a right adnexal cystic mass noted [facility] CT scan and ultrasound performed in the emergency room due to pelvic pain. This has been an adnexal cystic mass new about but it has starting to get bigger. Hospital Course Hospital Course Mrs. Baig 25-year-old female G1, P0 with a right adnexal cystic mass. Admitted for planned right oophorectomy/cystectomy. During exploratory laparotomy 60s mass was noted to be a hydrosalpinx and a right salpingectomy was performed out complication. Postop observation has been uneventful. She is afebrile hemodynamically stable postoperative day 2. Ambulating without difficulty. Tolerating diet well. Passing flatus. Physical Exam Narrative: GA: Alert and oriented ?3. HEENT: WNL. Heart: Regular rate and rhythm. Lungs: Clear to auscultation bilaterally. Abdomen: Bowel sounds present, minimal tenderness, incision clean and dry, no redness, pain or edema. CLARIFICATION OPERATOR: No bleeding. Extremities: No edema, no cyanosis, no calves pain. Urinary Catheter Management: Hopkins Latex: Cath Placed During This Visit: yes, but has since been removed by the nurse Reason for Continuing Indwelling Catheter: Perioperative Use in Selected Surgeries Urinary Catheter Date of Insertion: 07/20/21 Urinary Catheter Time of Insertion: 11:50 Date Urinary Catheter Removed: 07/21/21 Time Urinary Catheter Discontinued: 05:30 History History History 1 Term 0 Miscarriages/Ectopic 1 0 Living Children 0 Discharge Data Studies Completed and Pending Pending at discharge Category Date Time Status ES surgery / GI images Routine Exams 07/20/21 11:30 Taken Pathology: Surgical [PTH] Routine Pth 07/20/21 13:04 Received Laboratory Results WBC 14.3 10^3/uL (4.0-10.0) H 07/21/21 05:40 RBC 3.97 10^6/uL (4.1-5.3) L 07/21/21 05:40 Hgb 10.6 g/dL (11.5-15.3) L 07/21/21 05:40 Hct 33.3 % (37.0-47.0) L 07/21/21 05:40 MCV 83.9 fl (81-99) 07/21/21 05:40 MCH 26.7 pg (28.0-34.0) L 07/21/21 05:40 MCHC 31.8 g/dL (30.0-36.0) 07/21/21 05:40 RDW 13.5 % (12.1-15.1) 07/21/21 05:40 Plt Count 301 10^3/cmm (130-400) 07/21/21 05:40 MPV 11.9 fL (7.4-10.4) H 07/21/21 05:40 POC Glucose 84 mg/dL (70-110) 07/22/21 11:03 Vitals Last Vital Signs Temp 98.0 F 07/22/21 05:09 Pulse 80 07/22/21 05:09 Resp 16 07/22/21 05:09 BP 119/70 07/22/21 05:09 Pulse Ox 95 07/21/21 21:17 Discharge Plan Discharge Patient Disposition: Home Condition: Stable Prescriptions: New hydrocodone-acetaminophen 5-325 mg tablet 1 tab PO Q4H PRN (Reason: pain) Qty: 30 0RF ibuprofen 800 mg tablet 800 mg PO TID PRN (Reason: pain) Qty: 60 0RF acetaminophen 325 mg capsule 325 mg PO Q4H PRN (Reason: fever or pain) Qty: 60 0RF docusate sodium [Colace] 100 mg capsule 100 mg PO BID Qty: 60 0RF Continued metformin 500 mg tablet 500 mg PO BID Qty: 60 3RF lisinopril 10 mg tablet 2.5 mg PO DAILY Qty: 30 0RF atorvastatin 20 mg tablet 20 mg PO DAILY Qty: 30 3RF acetaminophen [Tylenol Extra Strength] 500 mg Tablet 1,000 mg PO Q4H PRN (Reason: Pain) 0RF ibuprofen 200 mg Tablet 800 mg PO Q4H PRN (Reason: Pain) 0RF hydrocodone-acetaminophen 5-325 mg tablet 1 tab PO Q6H PRN (Reason: pain) Qty: 14 0RF ondansetron 4 mg tablet,disintegrating 4 mg PO Q6H PRN (Reason: nausea and vomiting) Qty: 14 0RF doxycycline hyclate 100 mg tablet 100 mg PO BID 10 Days Qty: 20 0RF Discharge Orders: Discharge Order (Routine); Ordered 07/22/21 Ordered By: Eladio Arriaza Referrals: Eladio Arriaza MD [Physician] - 2 weeks Discharge Diet: Advance as tolerated and Usual diet Discharge Activity: Limit activity as instructed Patient Instructions: Salpingectomy (GEN), Exploratory Laparotomy (GEN), Opioid Safety Activity Restrictions/Additional Instructions: 1. Please call [facility] on next working day to make your post-operative appointment in 2 weeks. 2. Please stay home until you come back to the clinic on first post-operative check up. 3. Please follow instructions on your medications CAREFULLY. 4. If you have abdominal incision, do not cover it unless dressing is necessary because of drainage. OK to shower, but avoid bath. Leave steri-strips until they fall off. If they are still on one week after surgery, you may remove them. 5. If you had vaginal surgery or vaginal repair, Dr. Arriaza may instruct you to take SITZ bath. 6. Yellow, blood tinged odorous vaginal discharge is usually normal after hysterectomy or vaginal surgeries. 7. No sexual intercourse, tampons, or douches until you are completely released from the post-operative care. 8. Avoid constipation by eating right and maybe using some Metamucil or Milk of Magnesia. 9. All prescription refills are given during the working hours. Please do no wait till it runs out. Call the clinic at [phone] before your medication runs out. The clinic will get in touch with your doctor to prescribe medications if necessary. 10. Please remain within 40 mile radius from our hospital because emergencies do happen now and then during the post-operative period. 11. If you have stairs at home, take one step at a time slowly and minimize the number of trips. It helps to stay in one floor for the next few days. No lifting except what you can lift by one hand until you are released from the post-operative care. 12. Driving is discouraged until you are well healed. It may be 3-4 weeks before you feel strong enough to drive. You should be able to turn and look through the rear window without pain and you should be able to push the brake pedal very hard without pain before you drive. No fast rules, but SAFETY should be your primary concern. DO NOT drive if you are on sedating medications such as narcotics. 13. Call the clinic (during working hours) to make urgent appointment or go to the Emergency room, if any of the following occurs: i. Vaginal bleeding becomes heavy, more than a period. ii. Incision becomes red and sore, or drains pus. iii. Your temperature is over 100.4 or you have chill. iv. IV site becomes red and swollen (a little ``knot?? is usually OK) v. Persistent nausea and vomiting vi. Persistent constipation or diarrhea vii. Rash or allergic reaction to medications. Discharge Attestations HUMAN RESOURCES TEAM MEMBER Time Spent in Discharge Care*: greater than 30 min Coding Level of Care Code Acute Sales Ambassador for Leathag Fwd Diagnoses Status post exploratory laparotomy Z98.890
[2021-07-22] MEDS: ibuprofen 800 mg tablet PO (13:40)
[2021-07-22 13:51] VITALS: BP 124/76; PULSE 116; RESP 16; TEMP 36.9
[2021-07-22 13:55] VITALS: BP 124/76; PULSE 116; RESP 16; TEMP 36.9
== END 2021-07-22 14:00 | disposition home or self-care (01) ==
LOC: OBGYN 14:37
PROVIDERS: Admitting Provider Obstetrics & Gynecology; Visit Provider Obstetrics & Gynecology
PROC: (CPT 58700; principal; 2021-07-20 12:00)
DX: N83.201 Unspecified ovarian cyst, right side (principal); E11.9 Type 2 diabetes mellitus without complications; E66.01 Morbid (severe) obesity due to excess calories; Z68.41 Body mass index [BMI] 40.0-44.9, adult; I10 Essential (primary) hypertension; Z79.84 Long term (current) use of oral hypoglycemic drugs
CPT/HCPCS: 58700; 36415; 36416; 51702; 82962; 85027; 88307; C9290; G0378; J0690; J1100; J1170; J1650; J1885; J2250; J2405; J2704; J2710; J3010; J3490; J7030; J7040; Q0162

== ENCOUNTER 2021-12-07 16:10 | Outpatient (CLI) | payer OTHER, SELFPAY ==
[2021-12-07 17:41] LABS: Estmated Average Glucose 154
[2021-12-07 17:48] LABS: Alanine Aminotransferase 37 U/L (0-33); Albumin Level 4.2 g/dL (3.5-5.2); Alkaline Phosphatase 78 U/L (35-105); Aspartate Amino Transferase 22 U/L (0-32); Blood Urea Nitrogen 10 mg/dL (6-20); Carbon Dioxide 24 mmol/L (22-29); Chloride 102 mmol/L (98-107); Chol HDL Ratio 3.13 mg/dL (0.0-4.40); Cholesterol 119 mg/dL (0-200); Globulin 3.8 g/dL (1.3-4.6); Glucose 133 mg/dL (65-115); HDL Cholesterol 38 mg/dL (60-100); LDL Cholesterol Calculated 60 mg/dL (50-129); LDL HDL Ratio 1.58 RATIO (0.00-3.22); Osmolality Calculated 283 mOsm/kg (285-295); Sodium 136 mmol/L (136-145); Total Bilirubin 0.2 mg/dL (0.15-1.2); Triglycerides 105 mg/dL (0-150)
== END 2021-12-07 16:11 | disposition home or self-care (01) ==
LOC: LAB 16:14
PROVIDERS: PCP Nurse Practitioner Family; Visit Provider Internal Medicine
DX: E11.9 Type 2 diabetes mellitus without complications (principal); E78.00 Pure hypercholesterolemia, unspecified
CPT/HCPCS: 36415; 80053; 80061; 83036

== ENCOUNTER 2022-02-06 14:39 | Emergency (ER) | payer OTHER, SELFPAY ==
[2022-02-06 15:18] VITALS: BP 160/108; PULSE 97; RESP 16; TEMP 36.7; O2SAT 87; BMI 42.0
[2022-02-06 16:03] LABS: Basophils # 0.1 10^3/uL (0.0-0.1); Basophils % 0.7 %; Eosinophils # 0.3 10^3/uL (0.0-0.8); Eosinophils % 3.7 %; Hematocrit 43.5 % (37.0-47.0); Hemoglobin 13.8 g/dL (11.5-15.3); Lymphocytes # 2.2 10^3/uL (0.8-4.8); Lymphocytes % 27.5 %; Mean Corpuscular HGB Conc 31.7 g/dL (30.0-36.0); Mean Corpuscular Hemoglobin 25.9 pg (28.0-34.0); Mean Corpuscular Volume 81.8 fl (81-99); Mean Platelet Volume 11.2 fL (7.4-10.4); Monocytes # 0.5 10^3/uL (0.2-0.9); Monocytes % 5.8 %; Neutrophils # 4.95 10^3/uL (1.8-7.7); Neutrophils % 61.2 %; Nucleated Red Blood Cells % 0 %; Platelet Count 363 10^3/cmm (130-400); Red Blood Count 5.32 10^6/uL (4.1-5.3); Red Cell Distribution Width 13.6 % (12.1-15.1); White Blood Count 8.1 10^3/uL (4.0-10.0)
[2022-02-06 16:23] LABS: Alanine Aminotransferase 38 U/L (0-33); Albumin Level 4.4 g/dL (3.5-5.2); Alkaline Phosphatase 66 U/L (35-105); Anion Gap 15.8 (5-19); Aspartate Amino Transferase 29 U/L (0-32); Blood Urea Nitrogen 7 mg/dL (6-20); Calcium 9.7 mg/dL (8.5-10.5); Carbon Dioxide 24 mmol/L (22-29); Chloride 99 mmol/L (98-107); Globulin 3.6 g/dL (1.3-4.6); Glomerular Filtration Rate 119.9 mL/min (90-130); Glucose 108 mg/dL (65-115); Lipase 24 U/L (13-60); Osmolality Calculated 279 mOsm/kg (285-295); Potassium 3.8 mmol/L (3.5-5.1); Sodium 135 mmol/L (136-145); Total Bilirubin 0.2 mg/dL (0.15-1.2)
[2022-02-06 16:30] LABS: HCG, Serum Qual Negative (Negative)
[2022-02-06 17:50] LABS: Glucose Urine UA Norm (Normal); Ketones Urine 1+ (Negative); Protein Urine Neg (Negative); Specific Gravity, Urine 1.015 (1.005-1.030); Urine Appearance Clear (CLEAR); Urine Color Yellow (Yellow); pH Urine 8 (5-7)
[2022-02-06 17:51] LABS: Add Urine Microscopic? YES; Bacteria Urine TRACE /hpf; Bilirubin Urine Neg (Negative); Blood Urine Neg (Negative); Leukocyte Esterase Urine Trace (Negative); Nitrate Urine Negative (Negative); RBC Urine 0-4 /hpf (0-2); Squamous Epithelial Cell Urine 15-25 /hpf (0-5); Urobilinogen Urine Norm (Negative); WBC Urine 0-4 /hpf (0-5)
[2022-02-06 17:52] LABS: Add Urine Culture? No
[2022-02-06 17:57] VITALS: BP 133/84; PULSE 82; RESP 17; O2SAT 97
--- NOTE | 2022-02-06 17:57 | USR_ITS ---
PROCEDURE INFORMATION: Exam: US Abdomen, Limited; Right Upper Quadrant Exam date and time: 02/06/2022 7:03 PM Age: 26 years old Clinical indication: Abdominal pain; Other: Ruq pain with n+v >1wk. Normal tbili = 0.2; Normal ast = 29; Elevated alt = 38. Normal alkphos, normal lipase, normal albumin; Prior surgery; Surgery date: 1-6 months; Surgery type: 16 x 18 cm right ovarian cyst removal. ; Additional info: Ruq pain, vomiting and fever TECHNIQUE: Imaging protocol: Real time ultrasound of the abdomen with image documentation. Limited exam focused on the right upper quadrant. COMPARISON: CT kidney stone [id number] 07/12/2021 8:32 PM FINDINGS: Liver: Hepatic steatosis. Gallbladder: Normal. No gallstones. There is no gallbladder wall thickening. Biliary ducts: Normal. No stones. No dilation. Pancreas: Visualized pancreas is unremarkable. Right kidney: Normal. No mass. No hydronephrosis. US/US abdomen limited [id number] IMPRESSION: 1. Negative for cholelithiasis or cholecystitis. 2. Hepatic steatosis.
--- NOTE | 2022-02-06 18:12 | ED_ITS ---
HPI - Abdominal Pain General: Chief Complaint: Abdominal Pain Stated Complaint: abd pain URQ Time Seen by Provider: 02/06/22 17:16 History of Present Illness: Patient presents today with right upper quadrant abdominal pain for more than a week. She reports that she does have diabetes which is fairly well controlled however she has been on Ozempic medication mostly to help with weight loss. She states last dose of Ozempic was a week and a half ago. She reports that she is on the 2 mg dose. She knows that you can have nausea, vomiting, diarrhea with that medication but is just Persisting. She reports that she started having right upper quadrant abdominal pain that radiated to her right side back. She reports that she was having projectile vomiting. She states that she had the flu in the middle of all of this but her belly pain is persisting. She is somewhat worried about her gallbladder. She reports an approximate 20 pound weight loss in the past month. She denies . She reports that she has had off-and-on fever for the past 3 to 4 days, but reminds me that she has also recently had influenza. She reports a soft formed stool yesterday morning Associated Symptoms: Reports chills, constipation, fever(s), nausea and vomiting; Denies dysuria Related Data: Date of Last Menstrual Period: 07/11/21 Review of Systems Const: Reports: fever(s), chills and body aches ENMT: Denies: throat pain Card: Denies: chest pain or palpitations Resp: Denies: dyspnea, productive cough or non-productive cough GI: Reports: abdominal pain, nausea, vomiting and constipation : Denies: flank pain, difficulty voiding, dysuria, urinary frequency, urinary urgency or urinary hesitancy PFSH ED PFSH: Medical History Irregular menses No pertinent past medical history neghx: htn,dm,thyroid,dvt/pe PCP: None Surgical History History of right oophorectomy No pertinent past surgical history Family History Grandmother Diabetes Maternal Hypertension Maternal Thyroid disease Maternal Father Diabetes Mother Heart disease Hypertension Denies family history of Colon cancer Ovarian cancer Clotting disorder Hypercholesteremia Hyperlipidemia Breast cancer Anesthesia complication Bleeding disorder Uterine cancer Stroke Social History Smoking and tobacco status: never smoked Second hand smoke exposure: No Smoking risk assessment/counseling performed?: No Alcohol intake: current Alcohol intake frequency: holidays/special occasions only Alcohol type: beer Desire information about alcohol rehabilitation?: No Counseling given: No Desire information about substance/drug rehabilitation?: No Counseling given: No Adopted: No Caregiver/support person: No Lives independently: Yes Household members: significant other Housing: House Marital status: Single Highest education level completed: Bachelor's Degree service: No Current occupational status: employed History of recent travel: No Female Reproductive History: Date of last menstrual period: 07/11/21 Physical Exam Const: COMMON NORMALS: no acute distress, patient oriented x3 and alert NUTRITIONAL APPEARANCE: obese morbidly obese Neck/C-Spine: COMMON NORMALS: no JVD Resp: COMMON NORMALS: normal respiratory effort, No use of accessory muscles and clear to auscultation bilaterally AUSCULTATION: clear to auscultation bilaterally Cardio: COMMON NORMALS: no JVD, regular rate, regular rhythm, S1 normal heart sound present, S2 normal heart sound present and No murmurs present (Cardio) RATE: regular rate RHYTHM: regular rhythm HEART SOUNDS: S1 normal heart sound present and S2 normal heart sound present GI: COMMON NORMALS: Normal to inspection, nondistended, normoactive bowel sounds present, Soft to palpation and No hepatosplenomegaly present PALPATION: Yes Soft to palpation, Yes Tenderness to palpation present (GI) Details: RUQ (Negative Stewart sign. No guarding or rebound.) and Yes No hepatosplenomegaly present : COMMON NORMALS: Yes no CVA tenderness BLADDER/KIDNEY EXAM: Yes no CVA tenderness Back/Pelvis: COMMON NORMALS: no CVA tenderness Neuro: COMMON NORMALS: patient oriented x3 SENSORIUM/ORIENTATION: Yes alert Course ED course: Discussed that results of gallbladder ultrasound with patient. We discussed diet modifications to try and help with GI symptoms she is having. She is also starting to wonder constipation although she had a soft formed stool yesterday. We discussed using MiraLAX and stool softeners as needed. We discussed the importance of staying well-hydrated. Advised her to continue follow-up with her primary care provider. Vital Signs: Vital signs: Vital Signs Temperature 98.0 F 02/06/22 15:18 Pulse Rate 82 02/06/22 17:57 Respiratory Rate 17 02/06/22 17:57 Blood Pressure 133/84 02/06/22 17:57 Pulse Oximetry 97 02/06/22 17:57 Oxygen Delivery Me thod 02/06/22 17:57 MDM - Abdominal Pain Medical Decision Making Patient is in today for nausea, vomiting, right upper quadrant abdominal pain persisting for more than a week. Patient has had fever the past few days as high as 102.6. Patient is diabetic but has also recently started Ozempic medication to help with diabetes and weight loss. Patient also takes metformin but has been off of this medication while she has been vomiting. Patient reports that she has projectile vomiting and cannot keep anything down. 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 White blood cell count is normal. Lipase is normal. Negative Stewart's sign. Less concern for cholecystitis at this point. IV fluids, Zofran administered. Ultrasound right upper quadrant abdomen to evaluate for g allstones/biliary colic. Lab Data 02/06/22 15:37 02/06/22 15:37 Labs/Radiology: Radiology Impressions Abdomen Ultrasound 02/06/22 17:57 IMPRESSION: 1. Negative for cholelithiasis or cholecystitis. 2. Hepatic steatosis. Laboratory Results WBC 8.1 10^3/uL (4.0-10.0) 02/06/22 15:37 RBC 5.32 10^6/uL (4.1-5.3) H 02/06/22 15:37 Hgb 13.8 g/dL (11.5-15.3) 02/06/22 15:37 Hct 43.5 % (37.0-47.0) 02/06/22 15:37 MCV 81.8 fl (81-99) 02/06/22 15:37 MCH 25.9 pg (28.0-34.0) L 02/06/22 15:37 MCHC 31.7 g/dL (30.0-36.0) 02/06/22 15:37 RDW 13.6 % (12.1-15.1) 02/06/22 15:37 Plt Count 363 10^3/cmm (130-400) 02/06/22 15:37 MPV 11.2 fL (7.4-10.4) H 02/06/22 15:37 Neut % (Auto) 61.2 % 02/06/22 15:37 Lymph % (Auto) 27.5 % 02/06/22 15:37 [place] % (Auto) 5.8 % 02/06/22 15:37 Eos % (Auto) 3.7 % 02/06/22 15:37 Baso % (Auto) 0.7 % 02/06/22 15:37 Neut # (Auto) 4.95 10^3/uL (1.8-7.7) 02/06/22 15:37 Lymph # (Auto) 2.2 10^3/uL (0.8-4.8) 02/06/22 15:37 [place] # (Auto) 0.5 10^3/uL (0.2-0.9) 02/06/22 15:37 Eos # (Auto) 0.3 10^3/uL (0.0-0.8) 02/06/22 15:37 Baso # (Auto) 0.1 10^3/uL (0.0-0.1) 02/06/22 15:37 Nucleated RBC % (auto) 0 % 02/06/22 15:37 Nucleated RBCs # 0.0 /100WBC 02/06/22 15:37 Sodium 135 mmol/L (136-145) L 02/06/22 15:37 Potassium 3.8 mmol/L (3.5-5.1) 02/06/22 15:37 Chloride 99 mmol/L (98-107) 02/06/22 15:37 Carbon Dioxide 24 mmol/L (22-29) 02/06/22 15:37 Anion Gap 15.8 (5-19) 02/06/22 15:37 BUN 7 mg/dL (6-20) 02/06/22 15:37 Creatinine 0.6 mg/dL (0.5-0.9) 02/06/22 15:37 GFR Calculation 119.9 mL/min (90-130) 02/06/22 15:37 Glucose 108 mg/dL (65-115) 02/06/22 15:37 Calculated Osmolality 279 mOsm/kg (285-295) L 02/06/22 15:37 Calcium 9.7 mg/dL (8.5-10.5) 02/06/22 15:37 Total Bilirubin 0.2 mg/dL (0.15-1.2) 02/06/22 15:37 AST 29 U/L (0-32) 02/06/22 15:37 ALT 38 U/L (0-33) H 02/06/22 15:37 Alkaline Phosphatase 66 U/L (35-105) 02/06/22 15:37 Total Protein 8.0 g/dL (6.6-8.7) 02/06/22 15:37 Albumin 4.4 g/dL (3.5-5.2) 02/06/22 15:37 Globulin 3.6 g/dL (1.3-4.6) 02/06/22 15:37 Lipase 24 U/L (13-60) 02/06/22 15:37 HCG, Qual Negative (Negative) 02/06/22 15:37 Urine Color Yellow (Yellow) 02/06/22 17:24 Urine Appearance Clear (CLEAR) 02/06/22 17:24 Urine pH 8 (5-7) H 02/06/22 17:24 Ur Specific [place] 1.015 (1.005-1.030) 02/06/22 17:24 Urine Protein Neg (Negative) 02/06/22 17:24 Urine Glucose (UA) Norm (Normal) 02/06/22 17:24 Urine Ketones 1+ (Negative) H 02/06/22 17:24 Urine Blood Neg (Negative) 02/06/22 17:24 Urine Nitrate Negative (Negative) 02/06/22 17:24 Urine Bilirubin Neg (Negative) 02/06/22 17:24 Urine Urobilinogen Norm mg/dL (Negative) 02/06/22 17:24 Ur Leukocyte Esterase Trace (Negative) H 02/06/22 17:24 Urine RBC 0-4 /hpf (0-2) H 02/06/22 17:24 Urine WBC 0-4 /hpf (0-5) H 02/06/22 17:24 Ur Squamous Epith Cells 15-25 /hpf (0-5) H 02/06/22 17:24 Amorphous Sediment Not Reportable 02/06/22 17:24 Urine Bacteria Trace /hpf (NONE) 02/06/22 17:24 Discharge Plan Discharge Patient Disposition: Home Clinical Impression: Dehydration Abdominal pain Qualifiers: Abdominal location: right upper quadrant Qualified Code(s): R10.11 - Right upper quadrant pain Vomiting Qualifiers: Vomiting type: unspecified Nausea presence: with nausea Qualified Code(s): R11.2 - Nausea with vomiting, unspecified Condition: Stable Prescriptions: New ondansetron 4 mg tablet,disintegrating 4 mg PO Q8H PRN (Reason: nausea and vomiting) 3 Days Qty: 9 0RF No Action Jardiance 10 mg tablet 10 mg PO DAILY Qty: 90 3RF Rx Instructions: Take one tablet by mouth daily. Ozempic 1 mg/dose (4 mg/3 mL) pen injector 1 mg SUBCUT .Once a week Qty: 3 0RF Rx Instructions: Inject 1 mg subcut once a week. Ozempic 2 mg/dose (8 mg/3 mL) pen injector 2 mg SUBCUT .weekly Qty: 12 3RF Rx Instructions: Inject 2 mg subcut once a week and continue. mupirocin 2 % ointment 1 applic topical BID Qty: 22 0RF doxycycline hyclate 100 mg tablet 100 mg PO BID 7 Days Qty: 14 0RF metformin 500 mg tablet 500 mg PO BID Qty: 60 3RF atorvastatin 20 mg tablet 20 mg PO DAILY Qty: 30 3RF Ozempic 0.25 mg or 0.5 mg(2 mg/1.5 mL) pen injector 0.5 mg SUBCUT Q7D Qty: 3 0RF acetaminophen [Tylenol Extra Strength] 500 mg Tablet 1,000 mg PO Q4H PRN (Reason: Pain) ondansetron 4 mg tablet,disintegrating 4 mg PO Q6H PRN (Reason: nausea and vomiting) Qty: 14 0RF ibuprofen 800 mg tablet 800 mg PO TID PRN (Reason: pain) Qty: 60 0RF acetaminophen 325 mg capsule 325 mg PO Q4H PRN (Reason: fever or pain) Qty: 60 0RF Discharge Orders: Discharge ED (Routine); Ordered 02/06/22 Ordered By: Bria Smith Referrals: Navya Marquez FNP [Primary Care Provider] - Discharge Diet: Advance as tolerated Discharge Activity: Increase activity as tolerated Patient Instructions: Acute Nausea and Vomiting (ED), Abdominal Pain (ED) Activity Restrictions/Additional Instructions: Use Zofran as needed for nausea and vomiting. Make sure that you are staying well-hydrated. Continue follow-up with your primary care for further evaluation of upper abdominal pain. I recommend avoiding any high fat foods, caffeine, nicotine, lettuce, red sauce as these can trigger increased acid production and irritate the gallbladder. Return to the emergency room as needed for new or worsening symptoms including, but not limited to, inability to keep fluids down despite Zofran, persisting fever over the next 48 hours, worsening abdominal pain. Stand Alone Forms: Work/School Release Coding Level of Care Code ED Clinical Support Manager for Chg Fwd Exam Detailed
[2022-02-06] MEDS: sodium chloride 0.9% 1,000 ML 999 ML IV (18:16)
[2022-02-06] MEDS: ondansetron 2 mg/ML SDV 2 mL 4 MG IVP (18:18)
[2022-02-06] MEDS: lidocaine 2% viscous 15 ML, aluminum-mag hydrox-simethicon 30 ML, sucralfate oral liq 1 GM PO (20:16)
[2022-02-06 20:51] VITALS: BP 158/79; PULSE 70; RESP 16; TEMP 36.6; O2SAT 98
== END 2022-02-06 20:52 | disposition home or self-care (01) ==
PROVIDERS: Physician Assistant; Emergency Provider Nurse Practitioner Family; PCP Nurse Practitioner Family
DX: R10.11 Right upper quadrant pain (principal); R11.2 Nausea with vomiting, unspecified; E86.0 Dehydration; Z79.84 Long term (current) use of oral hypoglycemic drugs
CPT/HCPCS: 76705; 80053; 81001; 83690; 84703; 85025; 87400; 96361; 96374; 99285; J2405; J7030

== ENCOUNTER → 2022-03-19 12:21 | Outpatient (BNVA) | payer OTHER, SELFPAY | PROVIDERS: PCP Nurse Practitioner Family; Visit Provider Internal Medicine | DX: E78.00 Pure hypercholesterolemia, unspecified (principal); E11.9 Type 2 diabetes mellitus without complications; E66.01 Morbid (severe) obesity due to excess calories | CPT/HCPCS: 36415; 80061; 82784; 83036; 83516 ==

== ENCOUNTER 2022-06-27 10:23 | Outpatient (CLI) | payer OTHER, SELFPAY ==
[2022-06-27 11:57] LABS: Alanine Aminotransferase 52 U/L (0-33); Albumin Level 4.5 g/dL (3.5-5.2); Alkaline Phosphatase 81 U/L (35-105); Anion Gap 14.8 (5-19); Aspartate Amino Transferase 37 U/L (0-32); Blood Urea Nitrogen 12 mg/dL (6-20); Carbon Dioxide 23 mmol/L (22-29); Chloride 101 mmol/L (98-107); Chol HDL Ratio 3.29 mg/dL (0.0-4.40); Cholesterol 115 mg/dL (0-200); Ferritin 47 ng/mL (15-150); Globulin 3.3 g/dL (1.3-4.6); Glucose 202 mg/dL (65-115); HDL Cholesterol 35 mg/dL (60-100); LDL Cholesterol Calculated 41 mg/dL (50-129); LDL HDL Ratio 1.17 RATIO (0.00-3.22); Osmolality Calculated 286 mOsm/kg (285-295); Potassium 3.8 mmol/L (3.5-5.1); Sodium 135 mmol/L (136-145); Total Bilirubin 0.2 mg/dL (0.15-1.2); Total Protein 7.8 g/dL (6.6-8.7); Triglycerides 196 mg/dL (0-150)
[2022-06-27 11:58] LABS: Estmated Average Glucose 189; Hemoglobin A1C 8.2 % (4.0-6.0)
[2022-06-27 12:13] LABS: 25 Hydroxy Vitamin D 10 ng/mL (30-100)
[2022-06-27 12:57] LABS: Creatinine Urine, Random 145 mg/dL (28-217); Microalbum Creatinine Ratio Ur 14 mg/dL (0-20); Microalbumin Random Urine 2 ug/dL (0-20)
[2022-07-01 08:15] LABS: Zinc Level, Serum or Plasma 82 mcg/dL (60-130)
== END 2022-06-27 10:24 | disposition home or self-care (01) ==
PROVIDERS: PCP Nurse Practitioner Family; Visit Provider Internal Medicine
DX: L65.9 Nonscarring hair loss, unspecified (principal); E78.00 Pure hypercholesterolemia, unspecified; E11.9 Type 2 diabetes mellitus without complications; I10 Essential (primary) hypertension
CPT/HCPCS: 36415; 80053; 80061; 82044; 82306; 82728; 83036; 84630

== ENCOUNTER 2022-09-20 12:58 | Emergency (ER) | payer OTHER, SELFPAY ==
[2022-09-20 13:02] VITALS: PULSE 89; RESP 18; TEMP 36.6; O2SAT 99; BMI 43.4
[2022-09-20 13:17] VITALS: BP 173/117; PULSE 86; RESP 16; O2SAT 99
--- NOTE | 2022-09-20 13:19 | CTR_ITS ---
PROCEDURE INFORMATION: Exam: CT Abdomen And Pelvis With Contrast Exam date and time: 09/20/2022 2:39 PM Age: 26 years old Clinical indication: Abdominal pain; Localized; Upper; Additional info: Bilateral upper abdominal tenderness, n/v/d TECHNIQUE: Imaging protocol: Computed tomography of the abdomen and pelvis with contrast. Radiation optimization: All CT scans at this facility use at least one of these dose optimization techniques: automated exposure control; mA and/or kV adjustment per patient size (includes targeted exams where dose is matched to clinical indication); or iterative reconstruction. Contrast material: OMNI 350; Contrast volume: 100 ml; Contrast route: INTRAVENOUS (IV); REPORTING DATA: Count of CT and Cardiac NM exams in prior 12 months: This patient has received 0 known CTs and 0 known cardiac nuclear medicine studies in the 12 months prior to the current study. COMPARISON: CT kidney stone [id number] 07/12/2021 8:32 PM RADIATION DOSE METRICS: Total DLP (mGy-cm): 1448.03 FINDINGS: Lungs: Lung bases are clear. Liver: The liver is normal. Gallbladder and bile ducts: The gallbladder is normal. There is no biliary dilation. Pancreas: The pancreas is unremarkable. Spleen: The spleen is unremarkable. Adrenal glands: The adrenal glands are unremarkable. Kidneys and ureters: The kidneys are unremarkable. No hydronephrosis or stones. No ureteral dilation. Stomach and bowel: The stomach is unremarkable. The small bowel is nondilated. There is mild perienteric edema associated with proximal to mid small bowel in the upper abdomen. No pathologic bowel wall thickening or abnormal mucosal enhancement. The colon is unremarkable. Appendix: The appendix is normal. Intraperitoneal space: Small volume intermediate density pelvic free fluid. Mild perienteric mesenteric edema in the upper abdomen. There is no free air or significant intraperitoneal free fluid. Vasculature: The aorta is unremarkable. There is no aneurysm. The portal, splenic and superior mesenteric veins are patent. Lymph nodes: There are multiple nonspecific prominent lymph nodes in the central small bowel mesentery with surrounding mesenteric fat stranding. These lymph nodes are diffusely similar in size compared 07/12/2021. There are no enlarged lymph nodes in the retroperitoneum, isidra hepatis, pelvis or inguinal regions. Urinary bladder: The urinary bladder is unremarkable. Reproductive: There trace intermediate density free fluid in deep pelvis and right adnexa. Bones/joints: Bones are unremarkable. Soft tissues: The abdominal wall is intact. CT/CT abdomen pelvis w con* [id number] IMPRESSION: 1. Trace pelvic free fluid of intermediate density suggests minimal intraperitoneal hemorrhage. No adnexal mass or cyst is visible. 2. Mild perienteric edema without bowel dilation involving a long segment of proximal to mid small bowel. Probable nonspecific enteritis. 3. Central meseteric edema and prominent lymph nodes ([place] mesentery). 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 Prominent lymph nodes are stable since 07/12/2021. Mild central mesenteric edema is new. Differential diagnosis includes edema related to liver, cardiac, or renal disease, mesenteric inflammation secondary to organ or bowel inflammation, or mesenteric lymphedema. This finding can also be an early manifestation of lymphoma.
--- NOTE | 2022-09-20 13:20 | ED_ITS ---
Documented by User: COSMO Valdes 09/21/22 07:11 HPI - Abdominal Pain General: Chief Complaint: Abdominal Pain Stated Complaint: N/V/D/abd cramps Time Seen by Provider: 09/20/22 13:00 History of Present Illness: Patient is a 26-year-old female comes to the ED with abdominal pain. Patient is a diabetic and takes Ozempic. symptoms started approximately 5 days ago. She reports having abdominal pain that is in the upper part of her abdomen bilaterally. She rates the pain currently a 7 out of 10 she describes it as a constant cramping type pain. She tagfvql-[id number]-[id number] female who is well and has had multiple episodes of emesis each day. She also reports having watery diarrhea and having approximately 10 episodes of diarrhea a day for the first 3 days. She says the diarrhea has slowed down some over the past couple days but she still having episodes of diarrhea especially after she eats. Eating anything makes symptoms worse. Denies any improving factors. Endorses body aches and chills. Denies any fever, blood in stool, dysuria or hematuria. Patient states she is having vaginal bleeding and is currently on her menstrual period. Associated Symptoms: Reports chills, diarrhea, nausea and vomiting; Denies constipation, dysuria, fever(s), hematochezia and hematuria Review of Systems Const: Reports: chills and body aches; Denies: fever(s) or fatigue Eyes: Denies: change in vision or eye discomfort ENMT: Denies: throat pain, odynophagia, nasal discharge or nasal congestion Card: Denies: chest pain, palpitations, edema, swelling of feet/ankles, dyspnea on exertion or orthopnea Resp: Denies: dyspnea, productive cough or non-productive cough GI: Reports: abdominal pain, nausea, vomiting and diarrhea; Denies: constipation or hematochezia : Denies: flank pain, dysuria or hematuria Musc: Denies: neck pain, back pain or extremity swelling Skin/Breast: Denies: rash or new lesions Neuro: Denies: headache(s), numbness in extremities or weakness in extremities PFS ED PFSH: Medical History Irregular menses No pertinent past medical history neghx: htn,dm,thyroid,dvt/pe PCP: None Surgical History History of right oophorectomy No pertinent past surgical history Family History Grandmother Diabetes Maternal Hypertension Maternal Thyroid disease Maternal Father Diabetes Mother Heart disease Hypertension Denies family history of Colon cancer Ovarian cancer Clotting disorder Hypercholesteremia Hyperlipidemia Breast cancer Anesthesia complication Bleeding disorder Uterine cancer Stroke Social History Smoking and tobacco status: never smoked Second hand smoke exposure: No Smoking risk assessment/counseling performed?: No Alcohol intake: current Alcohol intake frequency: holidays/special occasions only Alcohol type: beer Desire information about alcohol rehabilitation?: No Counseling given: No Substance/Drug Use: never Desire information about substance/drug rehabilitation?: No Counseling given: No Adopted: No Caregiver/support person: No Lives independently: Yes Household members: significant other Housing: House Marital status: Single Highest education level completed: Bachelor's Degree service: No Current occupational status: employed Physical Exam Const: COMMON NORMALS: no acute distress, patient oriented x3 and alert HENMT: COMMON NORMALS: normocephalic HEAD & SCALP: normocephalic MOUTH: Normal oral and palatal mucosa present THROAT: posterior oropharynx normal and uvula midline Neck/C-Spine: COMMON NORMALS: supple GENERAL: Yes normal visual inspection Resp: COMMON NORMALS: normal respiratory effort, No retractions, No use of accessory muscles and clear to auscultation bilaterally AUSCULTATION: clear to auscultation bilaterally Cardio: COMMON NORMALS: regular rate, regular rhythm, S1 normal heart sound present, S2 normal heart sound present, No gallops present (Cardio), No clicks present (Cardio), No murmurs present (Cardio) and Peripheral pulses 2+ throughout RATE: regular rate RHYTHM: regular rhythm HEART SOUNDS: S1 normal heart sound present and S2 normal heart sound present PERIPHERAL PULSES: Peripheral pulses 2+ throughout GI: COMMON NORMALS: Normal to inspection, nondistended, normoactive bowel sounds present, Soft to palpation and no masses PALPATION: Yes Soft to palpation and Yes Tenderness to palpation present (GI) Details: LUQ and RUQ : COMMON NORMALS: Yes no CVA tenderness BLADDER/KIDNEY EXAM: Yes no CVA tenderness Back/Pelvis: COMMON NORMALS: no CVA tenderness Extremity: COMMON NORMALS: normal to inspection Neuro: COMMON NORMALS: patient oriented x3 SENSORIUM/ORIENTATION: Yes alert GAIT: Yes Normal gait present Skin: GENERAL SKIN EXAM: dry skin Course Vital Signs: Vital signs: Vital Signs Temperature 97.9 F 09/20/22 13:02 Pulse Rate 73 09/20/22 16:46 Respiratory Rate 16 09/20/22 16:46 Blood Pressure 141/97 09/20/22 16:46 Pulse Oximetry 98 09/20/22 16:46 Oxygen Delivery Me thod Room Air 09/20/22 13:02 MDM - Abdominal Pain Medical Decision Making Patient is a 26-year-old female comes to the ED with abdominal pain. Patient is a diabetic and takes Ozempic. symptoms started approximately 5 days ago. She r eports having abdominal pain that is in the upper part of her abdomen bilaterally. She rates the pain currently a 7 out of 10 she describes it as a constant cramping type pain. She mskzjhy-dvps-orw female who is well and has had multiple episodes of emesis each day. She also reports having watery diarrhea and having approximately 10 episodes of diarrhea a day for the first 3 days. She says the diarrhea has slowed down some over the past couple days but she still having episodes of diarrhea especially after she eats. Eating anything makes symptoms worse. Denies any improving factors. Endorses body aches and chills. Denies any fever, blood in stool, dysuria or hematuria. Patient states she is having vaginal bleeding and is currently on her menstrual period. Vital stable. Patient has bilateral upper abdominal tenderness. Rest of exam is benign and patient appears nontoxic in no acute distress. White blood cell count 13 and the rest of CBC, CMP, lipase and UA were all unremark able. CT abdomen pelvis shows some signs of enteritis and some mesenteric panniculitis. I called the radiologist and spoke with her about the findings of fluid in the pelvis and she stated it is likely physiologic. Patient was given a liter of IV fluids, Toradol and Zofran and her symptoms improved. She was able to tolerate p.o. fluids here in the ED. Patient was diagnosed with enteritis and mesenteric panniculitis and was discharged home with a prescription for Zofran. Told to follow-up with PCP in the next week for reevaluation. Return to ED precautions given. Patient understood and agreed with plan. Lab Data I reviewed the patient's lab results. 09/20/22 13:16 09/20/22 13:16 Labs/Radiology: Radiology Impressions Abdomen/Pelvis CT 09/20/22 13:19 IMPRESSION: 1. Trace pelvic free fluid of intermediate density suggests minimal intraperitoneal hemorrhage. No adnexal mass or cyst is visible. 2. Mild perienteric edema without bowel dilation involving a long segment of proximal to mid small bowel. Probable nonspecific enteritis. 3. Central meseteric edema and prominent lymph nodes (morelia mesentery). 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 Prominent lymph nodes are stable since 07/12/2021. Mild central mesenteric edema is new. Differential diagnosis includes edema related to liver, cardiac, or renal disease, mesenteric inflammation secondary to organ or bowel inflammation, or mesenteric lymphedema. This finding can also be an early manifestation of lymphoma. ADDENDUM: 09/20/22 1632 1. Small amount of fluid in the pelvis measures normal simple fluid density in the anti dependent area and higher density in the dependent area though this measurement is likely artifactual due to horizontal artifact crossing the area of the fluid and the uterus along with other pelvic structures as seen on series 3, image [id number]. Simple fluid is likely physiologic. 2. The uterus and 2 normal [address]ies are in place. 3. There is no morelia mesentery and no concern for lymphoma. Borderline prominent in size nonspecific mesenteric lymph nodes are unchanged since prior exam on 07/12/2021 with maximal short axis of 0.8 cm. The findings were verbally communicated via telephone conference with TIGRE TONEY at 4:25 PM CDT on 09/20/2022. The findings were acknowledged and understood. Laboratory Results WBC 13.0 10^3/uL (4.0-10.0) H 09/20/22 13:16 RBC 5.09 10^6/uL (4.1-5.3) 09/20/22 13:16 Hgb 14.0 g/dL (11.5-15.3) 09/20/22 13:16 Hct 43.1 % (37.0-47.0) 09/20/22 13:16 MCV 84.7 fl (81-99) 09/20/22 13:16 MCH 27.5 pg (28.0-34.0) L 09/20/22 13:16 MCHC 32.5 g/dL (30.0-36.0) 09/20/22 13:16 RDW 13.1 % (12.1-15.1) 09/20/22 13:16 Plt Count 429 10^3/cmm (130-400) H 09/20/22 13:16 MPV 10.6 fL (7.4-10.4) H 09/20/22 13:16 Neut % (Auto) 56.3 % 09/20/22 13:16 Lymph % (Auto) 33.6 % 09/20/22 13:16 Hamblen % (Auto) 4.8 % 09/20/22 13:16 Eos % (Auto) 3.5 % 09/20/22 13:16 Baso % (Auto) 0.3 % 09/20/22 13:16 Neut # (Auto) 7.35 10^3/uL (1.8-7.7) 09/20/22 13:16 Lymph # (Auto) 4.4 10^3/uL (0.8-4.8) 09/20/22 13:16 Hamb[place] # (Auto) 0.6 10^3/uL (0.2-0.9) 09/20/22 13:16 Eos # (Auto) 0.5 10^3/uL (0.0-0.8) 09/20/22 13:16 Baso # (Auto) 0.0 10^3/uL (0.0-0.1) 09/20/22 13:16 Nucleated RBC % (auto) 0 % 09/20/22 13:16 Nucleated RBCs # 0.0 /100WBC 09/20/22 13:16 Sodium 142 mmol/L (136-145) 09/20/22 13:16 Potassium 4.1 mmol/L (3.5-5.1) 09/20/22 13:16 Chloride 104 mmol/L (98-107) 09/20/22 13:16 Carbon Dioxide 25 mmol/L (22-29) 09/20/22 13:16 Anion Gap 17.1 (5-19) 09/20/22 13:16 BUN 11 mg/dL (6-20) 09/20/22 13:16 Creatinine 0.6 mg/dL (0.5-0.9) 09/20/22 13:16 GFR Calculation 119.9 mL/min (90-130) 09/20/22 13:16 Glucose 96 mg/dL (65-115) 09/20/22 13:16 Calculated Osmolality 293 mOsm/kg (285-295) 09/20/22 13:16 Calcium 9.6 mg/dL (8.5-10.5) 09/20/22 13:16 Total Bilirubin 0.2 mg/dL (0.15-1.2) 09/20/22 13:16 AST 29 U/L (0-32) 09/20/22 13:16 ALT 51 U/L (0-33) H 09/20/22 13:16 Alkaline Phosphatase 77 U/L (35-105) 09/20/22 13:16 Total Protein 8.0 g/dL (6.6-8.7) 09/20/22 13:16 Albumin 4.5 g/dL (3.5-5.2) 09/20/22 13:16 Globulin 3.5 g/dL (1.3-4.6) 09/20/22 13:16 Lipase 15 U/L (13-60) 09/20/22 13:16 HCG, Qual Negative (Negative) 09/20/22 13:16 Discharge Plan Discharge Patient Disposition: Home Clinical Impression: Enteritis, Mesenteric panniculitis Condition: Stable Prescriptions: New ondansetron 4 mg tablet,disintegrating 4 mg PO Q8H PRN (Reason: nausea and vomiting) Qty: 15 0RF No Action Ozempic 2 mg/dose (8 mg/3 mL) pen injector 2 mg SUBCUT .weekly Qty: 12 3RF Rx Instructions: Inject 2 mg subcut once a week and continue. mupirocin 2 % ointment 1 applic topical BID Qty: 22 0RF doxycycline hyclate 100 mg tablet 100 mg PO BID 7 Days Qty: 14 0RF Ozempic 0.25 mg or 0.5 mg(2 mg/1.5 mL) pen injector 0.25 mg SUBCUT Q7D Qty: 3 3RF Rx Instructions: O.25mg Q7D for 1 month; then O.5mg Q7D and continue Jardiance 10 mg tablet 10 mg PO DAILY Qty: 90 3RF Rx Instructions: Take one tablet by mouth daily. cholecalciferol (vitamin D3) 1,250 mcg (50,000 unit) capsule 50,000 unit PO .weekly Qty: 10 0RF ketoconazole 2 % shampoo 1 applic topical ONCE Qty: 120 3RF Rx Instructions: Lather onto affected areas as body wash everyday for 4 weeks then one week per month thereafter. ciclopirox 0.77 % cream 1 applic topical BID 28 Days Qty: 90 0RF Rx Instructions: Apply to affected areas twice daily for 4 weeks then as needed for flares. atorvastatin 20 mg tablet 20 mg PO DAILY Qty: 30 3RF Ozempic 1 mg/dose (4 mg/3 mL) pen injector 1 mg SUBCUT .Once a week Qty: 3 0RF Rx Instructions: Inject 1 mg subcut once a week. metformin 500 mg tablet See Rx Instructions .ROUTE .COMPLEX Qty: 60 1RF Dose Instruction: TAKE 1 TABLET BY MOUTH TWICE A DAY FOR DIABETES Rx Instructions: TAKE 1 TABLET BY MOUTH TWICE A DAY FOR DIABETES acetaminophen [Tylenol Extra Strength] 500 mg Tablet 1,000 mg PO Q4H PRN (Reason: Pain) ondansetron 4 mg tablet,disintegrating 4 mg PO Q6H PRN (Reason: nausea and vomiting) Qty: 14 0RF ibuprofen 800 mg tablet 800 mg PO TID PRN (Reason: pain) Qty: 60 0RF acetaminophen 325 mg capsule 325 mg PO Q4H PRN (Reason: fever or pain) Qty: 60 0RF Discharge Orders: Discharge ED (Routine); Ordered 09/20/22 Ordered By: Tigre Toney Referrals: Natalia Reed FNP-C [Primary Care Provider] - Discharge Diet: Advance as tolerated and Clear Liquid Discharge Activity: Increase activity as tolerated Patient Instructions: Mesenteric Adenitis (ED), Enteritis (ED) Activity Restrictions/Additional Instructions: Follow-up with medical provider as directed in the next 5 to 7 days for reevaluation. Drink plenty fluids and stay hydrated. Clear liquid diet for the next 12 to 24 hours and slowly advance diet as tolerated. Take medications as prescribed. Return to the ER or your medical provider if condition worsens. Please read and understand discharge instructions. Thank you for choosing [facility] for your healthcare needs today. Please realize this is an emergency room and that we are providing you with a medical screening exam and this may not be complete and all inclusive of all the testing and or work up that you may need to determine your ailment or severity of your illness. It is very important that you follow up as instructed or that you return to the Emergency Department should you have concerns or if your condition changes or worsens in any way. 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 by User: César Bang DO 09/24/22 06:40 HPI - Abdominal Pain General: Chief Complaint: Abdominal Pain Stated Complaint: N/V/D/abd cramps Time Seen by Provider: 09/20/22 13:00 [facility] ED PFSH: Medical History Irregular menses No pertinent past medical history neghx: htn,dm,thyroid,dvt/pe PCP: None Surgical History History of right oophorectomy No pertinent past surgical history Family History Grandmother Diabetes Maternal Hypertension Maternal Thyroid disease Maternal Father Diabetes Mother Heart disease Hypertension Denies family history of Colon cancer Ovarian cancer Clotting disorder Hypercholesteremia Hyperlipidemia Breast cancer Anesthesia complication Bleeding disorder Uterine cancer Stroke Social History Smoking and tobacco status: never smoked Second hand smoke exposure: No Smoking risk assessment/counseling performed?: No Alcohol intake: current Alcohol intake frequency: holidays/special occasions only Alcohol type: beer Desire information about alcohol rehabilitation?: No Counseling given: No Substance/Drug Use: never Desire information about substance/drug rehabilitation?: No Counseling given: No Adopted: No Caregiver/support person: No Lives independently: Yes Household members: significant other Housing: House Marital status: Single Highest education level completed: Bachelor's Degree service: No Current occupational status: employed Course Vital Signs: Vital signs: Vital Signs Temperature 97.9 F 09/20/22 13:02 Pulse Rate 73 09/20/22 16:46 Respiratory Rate 16 09/20/22 16:46 Blood Pressure 141/97 09/20/22 16:46 Pulse Oximetry 98 09/20/22 16:46 Oxygen Delivery Me thod Room Air 09/20/22 13:02 MDM - Abdominal Pain Medical Decision Making Patient is a 26-year-old female comes to the ED with abdominal pain. Patient is a diabetic and takes Ozempic. symptoms started approximately 5 days ago. She reports having abdominal pain that is in the upper part of her abdomen bilaterally. She rates the pain currently a 7 out of 10 she describes it as a constant cramping type pain. She mskensq-pyin-ifg female who is well and has had multiple episodes of emesis each day. She also reports having watery lisa rrhea and having approximately 10 episodes of diarrhea a day for the first 3 days. She says the diarrhea has slowed down some over the past couple days but she still having episodes of diarrhea especially after she eats. Eating anything makes symptoms worse. Denies any improving factors. Endorses body aches and chills. Denies any fever, blood in stool, dysuria or hematuria. Patient states she is having vaginal bleeding and is currently on her menstrual period. Vital stable. Patient has bilateral upper abdominal tenderness. Rest of exam is benign and patient appears nontoxic in no acute distress. White blood cell count 13 and the rest of CBC, CMP, lipase and UA were all unremarkable. CT abdomen pelvis shows some signs of enteritis and some mesenteric panniculitis. I called the radiologist and spoke with her about the findings of fluid in the pelvis and she stated it is likely physiologic. Patient was given a liter of IV fluids, Toradol and Zofran and her symptoms improved. She was able to tolerate p.o. fluids here in the ED. Patient was diagnosed with enteritis and mesenteric panniculitis and was discharged home with a prescription for Zofran. Told to follow-up with PCP in the next week for reevaluation. Return to ED precautions given. Patient understood and agreed with plan. Chart reviewed and patient discussed with midlevel. Agree with assessment and plan. Lab Data 09/20/22 13:16 09/20/22 13:16 Labs/Radiology: Radiology Impressions Abdomen/Pelvis CT 09/20/22 13:19 IMPRESSION: 1. Trace pelvic free fluid of intermediate density suggests minimal intraperitoneal hemorrhage. No adnexal mass or cyst is visible. 2. Mild perienteric edema without bowel dilation involving a long segment of proximal to mid small bowel. Probable nonspecific enteritis. 3. Central meseteric edema and prominent lymph nodes (morelia mesentery). 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 Prominent lymph nodes are stable since 07/12/2021. Mild central mesenteric edema is new. Differential diagnosis includes edema related to liver, cardiac, or renal disease, mesenteric inflammation secondary to organ or bowel inflammation, or mesenteric lymphedema. This finding can also be an early manifestation of lymphoma. ADDENDUM: 09/20/22 1632 1. Small amount of fluid in the pelvis measures normal simple fluid density in the anti dependent area and higher density in the dependent area though this measurement is likely artifactual due to horizontal artifact crossing the area of the fluid and the uterus along with other pelvic structures as seen on series 3, image [id number]. Simple fluid is likely physiologic. 2. The uterus and 2 normal ovaries are in place. 3. There is no morelia mesentery and no concern for lymphoma. Borderline prominent in size nonspecific mesenteric lymph nodes are unchanged since prior exam on 07/12/2021 with maximal short axis of 0.8 cm. The findings were verbally communicated via telephone conference with TIGRE TONEY at 4:25 PM CDT on 09/20/2022. The findings were acknowledged and understood. Laboratory Results WBC 13.0 10^3/uL (4.0-10.0) H 09/20/22 13:16 RBC 5.09 10^6/uL (4.1-5.3) 09/20/22 13:16 Hgb 14.0 g/dL (11.5-15.3) 09/20/22 13:16 Hct 43.1 % (37.0-47.0) 09/20/22 13:16 MCV 84.7 fl (81-99) 09/20/22 13:16 MCH 27.5 pg (28.0-34.0) L 09/20/22 13:16 MCHC 32.5 g/dL (30.0-36.0) 09/20/22 13:16 RDW 13.1 % (12.1-15.1) 09/20/22 13:16 Plt Count 429 10^3/cmm (130-400) H 09/20/22 13:16 MPV 10.6 fL (7.4-10.4) H 09/20/22 13:16 Neut % (Auto) 56.3 % 09/20/22 13:16 Lymph % (Auto) 33.6 % 09/20/22 13:16 Hamblen % (Auto) 4.8 % 09/20/22 13:16 Eos % (Auto) 3.5 % 09/20/22 13:16 Baso % (Auto) 0.3 % 09/20/22 13:16 Neut # (Auto) 7.35 10^3/uL (1.8-7.7) 09/20/22 13:16 Lymph # (Auto) 4.4 10^3/uL (0.8-4.8) 09/20/22 13:16 [place] # (Auto) 0.6 10^3/uL (0.2-0.9) 09/20/22 13:16 Eos # (Auto) 0.5 10^3/uL (0.0-0.8) 09/20/22 13:16 Baso # (Auto) 0.0 10^3/uL (0.0-0.1) 09/20/22 13:16 Nucleated RBC % (auto) 0 % 09/20/22 13:16 Nucleated RBCs # 0.0 /100WBC 09/20/22 13:16 Sodium 142 mmol/L (136-145) 09/20/22 13:16 Potassium 4.1 mmol/L (3.5-5.1) 09/20/22 13:16 Chloride 104 mmol/L (98-107) 09/20/22 13:16 Carbon Dioxide 25 mmol/L (22-29) 09/20/22 13:16 Anion Gap 17.1 (5-19) 09/20/22 13:16 BUN 11 mg/dL (6-20) 09/20/22 13:16 Creatinine 0.6 mg/dL (0.5-0.9) 09/20/22 13:16 GFR Calculation 119.9 mL/min (90-130) 09/20/22 13:16 Glucose 96 mg/dL (65-115) 09/20/22 13:16 Calculated Osmolality 293 mOsm/kg (285-295) 09/20/22 13:16 Calcium 9.6 mg/dL (8.5-10.5) 09/20/22 13:16 Total Bilirubin 0.2 mg/dL (0.15-1.2) 09/20/22 13:16 AST 29 U/L (0-32) 09/20/22 13:16 ALT 51 U/L (0-33) H 09/20/22 13:16 Alkaline Phosphatase 77 U/L (35-105) 09/20/22 13:16 Total Protein 8.0 g/dL (6.6-8.7) 09/20/22 13:16 Albumin 4.5 g/dL (3.5-5.2) 09/20/22 13:16 Globulin 3.5 g/dL (1.3-4.6) 09/20/22 13:16 Lipase 15 U/L (13-60) 09/20/22 13:16 HCG, Qual Negative (Negative) 09/20/22 13:16 Discharge Plan Discharge Patient Disposition: Home Clinical Impression: Enteritis, Mesenteric panniculitis Condition: Stable Prescriptions: New ondansetron 4 mg tablet,disintegrating 4 mg PO Q8H PRN (Reason: nausea and vomiting) Qty: 15 0RF No Action Ozempic 2 mg/dose (8 mg/3 mL) pen injector 2 mg SUBCUT .weekly Qty: 12 3RF Rx Instructions: Inject 2 mg subcut once a week and continue. mupirocin 2 % ointment 1 applic topical BID Qty: 22 0RF doxycycline hyclate 100 mg tablet 100 mg PO BID 7 Days Qty: 14 0RF Ozempic 0.25 mg or 0.5 mg(2 mg/1.5 mL) pen injector 0.25 mg SUBCUT Q7D Qty: 3 3RF Rx Instructions: O.25mg Q7D for 1 month; then O.5mg Q7D and continue Jardiance 10 mg tablet 10 mg PO DAILY Qty: 90 3RF Rx Instructions: Take one tablet by mouth daily. cholecalciferol (vitamin D3) 1,250 mcg (50,000 unit) capsule 50,000 unit PO .weekly Qty: 10 0RF ketoconazole 2 % shampoo 1 applic topical ONCE Qty: 120 3RF Rx Instructions: Lather onto affected areas as body wash everyday for 4 weeks then one week per month thereafter. ciclopirox 0.77 % cream 1 applic topical BID 28 Days Qty: 90 0RF Rx Instructions: Apply to affected areas twice daily for 4 weeks then as needed for flares. atorvastatin 20 mg tablet 20 mg PO DAILY Qty: 30 3RF Ozempic 1 mg/dose (4 mg/3 mL) pen injector 1 mg SUBCUT .Once a week Qty: 3 0RF Rx Instructions: Inject 1 mg subcut once a week. metformin 500 mg tablet See Rx Instructions .ROUTE .COMPLEX Qty: 60 1RF Dose Instruction: TAKE 1 TABLET BY MOUTH TWICE A DAY FOR DIABETES Rx Instructions: TAKE 1 TABLET BY MOUTH TWICE A DAY FOR DIABETES acetaminophen [Tylenol Extra Strength] 500 mg Tablet 1,000 mg PO Q4H PRN (Reason: Pain) ondansetron 4 mg tablet,disintegrating 4 mg PO Q6H PRN (Reason: nausea and vomiting) Qty: 14 0RF ibuprofen 800 mg tablet 800 mg PO TID PRN (Reason: pain) Qty: 60 0RF acetaminophen 325 mg capsule 325 mg PO Q4H PRN (Reason: fever or pain) Qty: 60 0RF Discharge Orders: Discharge ED (Routine); Ordered 09/20/22 Ordered By: Tigre Toney Referrals: Natalia Reed FNP-C [Primary Care Provider] - Discharge Diet: Advance as tolerated and Clear Liquid Discharge Activity: Increase activity as tolerated Patient Instructions: Mesenteric Adenitis (ED), Enteritis (ED) Activity Restrictions/Additional Instructions: Follow-up with medical provider as directed in the next 5 to 7 days for reevaluation. Drink plenty fluids and stay hydrated. Clear liquid diet for the next 12 to 24 hours and slowly advance diet as tolerated. Take medications as prescribed. Return to the ER or your medical provider if condition worsens. Please read and understand discharge instructions. Thank you for choosing [facility] for your healthcare needs today. Please realize this is an emergency room and that we are providing you with a medical screening exam and this may not be complete and all inclusive of all the testing and or work up that you may need to determine your ailment or severity of your illness. It is very important that you follow up as instructed or that you return to the Emergency Department should you have concerns or if your condition changes or worsens in any way. 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
[2022-09-20 13:26] LABS: Basophils % 0.3 %; Eosinophils # 0.5 10^3/uL (0.0-0.8); Eosinophils % 3.5 %; Hematocrit 43.1 % (37.0-47.0); Lymphocytes # 4.4 10^3/uL (0.8-4.8); Lymphocytes % 33.6 %; Mean Corpuscular HGB Conc 32.5 g/dL (30.0-36.0); Mean Corpuscular Hemoglobin 27.5 pg (28.0-34.0); Mean Corpuscular Volume 84.7 fl (81-99); Mean Platelet Volume 10.6 fL (7.4-10.4); Monocytes # 0.6 10^3/uL (0.2-0.9); Monocytes % 4.8 %; Neutrophils # 7.35 10^3/uL (1.8-7.7); Neutrophils % 56.3 %; Nucleated Red Blood Cells % 0 %; Platelet Count 429 10^3/cmm (130-400); Red Blood Count 5.09 10^6/uL (4.1-5.3); Red Cell Distribution Width 13.1 % (12.1-15.1)
[2022-09-20] MEDS: sodium chloride 0.9% 1,000 ML 999 ML IV (13:26)
[2022-09-20] MEDS: ketorolac 30 mg/mL INJ IVP (13:26)
[2022-09-20] MEDS: ondansetron 2 mg/ML SDV 2 mL 4 MG IVP (13:26)
[2022-09-20 13:45] LABS: Alanine Aminotransferase 51 U/L (0-33); Albumin Level 4.5 g/dL (3.5-5.2); Alkaline Phosphatase 77 U/L (35-105); Anion Gap 17.1 (5-19); Aspartate Amino Transferase 29 U/L (0-32); Blood Urea Nitrogen 11 mg/dL (6-20); Calcium 9.6 mg/dL (8.5-10.5); Carbon Dioxide 25 mmol/L (22-29); Chloride 104 mmol/L (98-107); Globulin 3.5 g/dL (1.3-4.6); Glomerular Filtration Rate 119.9 mL/min (90-130); Glucose 96 mg/dL (65-115); Lipase 15 U/L (13-60); Osmolality Calculated 293 mOsm/kg (285-295); Potassium 4.1 mmol/L (3.5-5.1); Sodium 142 mmol/L (136-145); Total Bilirubin 0.2 mg/dL (0.15-1.2)
[2022-09-20 13:56] LABS: HCG, Serum Qual Negative (Negative)
[2022-09-20] MEDS: iohexol 350 mg/mL 500 mL Btl (per mL) IV (14:44)
[2022-09-20 15:04] VITALS: BP 91/78; PULSE 80; RESP 16; O2SAT 96
[2022-09-20 16:46] VITALS: BP 141/97; PULSE 73; RESP 16; O2SAT 98
== END 2022-09-20 16:48 | disposition home or self-care (01) ==
PROVIDERS: Emergency Provider Physician Assistant; PCP Nurse Practitioner Family
DX: K65.4 Sclerosing mesenteritis (principal); K52.9 Noninfective gastroenteritis and colitis, unspecified
CPT/HCPCS: 74177; 80053; 83690; 84703; 85025; 96374; 96375; 99284; J1885; J2405; J7030; Q9967

== ENCOUNTER 2022-09-27 08:10 | Outpatient (CLI) | payer OTHER, SELFPAY ==
[2022-09-27 09:06] LABS: Alanine Aminotransferase 46 U/L (0-33); Albumin Level 4.2 g/dL (3.5-5.2); Alkaline Phosphatase 62 U/L (35-105); Anion Gap 15.7 (5-19); Aspartate Amino Transferase 23 U/L (0-32); Blood Urea Nitrogen 11 mg/dL (6-20); Calcium 9.1 mg/dL (8.5-10.5); Carbon Dioxide 23 mmol/L (22-29); Chloride 104 mmol/L (98-107); Chol HDL Ratio 3.38 mg/dL (0.0-4.40); Cholesterol 125 mg/dL (0-200); Globulin 2.7 g/dL (1.3-4.6); Glucose 132 mg/dL (65-115); HDL Cholesterol 37 mg/dL (60-100); LDL Cholesterol Calculated 66 mg/dL (50-129); LDL HDL Ratio 1.78 RATIO (0.00-3.22); Osmolality Calculated 287 mOsm/kg (285-295); Potassium 4.7 mmol/L (3.5-5.1); Sodium 138 mmol/L (136-145); Total Bilirubin 0.2 mg/dL (0.15-1.2); Total Protein 6.9 g/dL (6.6-8.7); Triglycerides 110 mg/dL (0-150)
[2022-09-27 09:55] LABS: Estmated Average Glucose 151; Hemoglobin A1C 6.9 % (4.0-6.0)
[2022-09-27 10:00] LABS: 25 Hydroxy Vitamin D 22 ng/mL (30-100)
[2022-09-27 10:53] LABS: Creatinine Urine, Random 121 mg/dL (28-217); Microalbum Creatinine Ratio Ur 8 mg/dL (0-20); Microalbumin Random Urine 1 ug/dL (0-20)
== END 2022-09-27 08:11 | disposition home or self-care (01) ==
PROVIDERS: PCP Nurse Practitioner Family; Visit Provider Internal Medicine
DX: E78.00 Pure hypercholesterolemia, unspecified (principal); E66.01 Morbid (severe) obesity due to excess calories
CPT/HCPCS: 36415; 80053; 80061; 82044; 82306; 83036

== ENCOUNTER → 2022-11-22 08:20 | Outpatient (BNVA) | payer OTHER, SELFPAY | PROVIDERS: Visit Provider Nurse Practitioner Family | DX: R05.9 Cough, unspecified (principal); U07.1 COVID-19 | CPT/HCPCS: 87426 ==

== ENCOUNTER 2023-03-19 16:39 | Outpatient (CLI) | payer OTHER, SELFPAY ==
[2023-03-19 18:39] LABS: Alanine Aminotransferase 65 U/L (0-33); Albumin Level 4.5 g/dL (3.5-5.2); Alkaline Phosphatase 82 U/L (35-105); Anion Gap 16.8 (5-19); Aspartate Amino Transferase 35 U/L (0-32); Blood Urea Nitrogen 13 mg/dL (6-20); Calcium 9.6 mg/dL (8.5-10.5); Carbon Dioxide 24 mmol/L (22-29); Chloride 98 mmol/L (98-107); Chol HDL Ratio 4.54 mg/dL (0.0-4.40); Cholesterol 159 mg/dL (0-200); Glomerular Filtration Rate 146.9 mL/min (90-130); Glucose 189 mg/dL (65-115); HDL Cholesterol 35 mg/dL (60-100); LDL Cholesterol Calculated 69 mg/dL (50-129); LDL HDL Ratio 1.97 RATIO (0.00-3.22); Osmolality Calculated 285 mOsm/kg (285-295); Potassium 3.8 mmol/L (3.5-5.1); Sodium 135 mmol/L (136-145); Total Bilirubin 0.2 mg/dL (0.15-1.2); Total Protein 8.5 g/dL (6.6-8.7); Triglycerides 273 mg/dL (0-150)
[2023-03-19 18:52] LABS: 25 Hydroxy Vitamin D 18 ng/mL (30-100)
[2023-03-19 18:55] LABS: Creatinine Urine, Random 171 mg/dL (28-217); Microalbum Creatinine Ratio Ur 35 mg/dL (0-20); Microalbumin Random Urine 6 ug/dL (0-20)
[2023-03-19 20:44] LABS: Estmated Average Glucose 229; Hemoglobin A1C 9.6 % (4.0-6.0)
== END 2023-03-19 16:40 | disposition home or self-care (01) ==
PROVIDERS: PCP Nurse Practitioner Family; Visit Provider Internal Medicine
DX: E11.9 Type 2 diabetes mellitus without complications (principal)
CPT/HCPCS: 80053; 80061; 82044; 82306; 83036

== ENCOUNTER 2023-07-03 16:10 | Outpatient (CLI) | payer OTHER, SELFPAY ==
[2023-07-03 16:42] LABS: Estmated Average Glucose 160; Hemoglobin A1C 7.2 % (4.0-6.0)
[2023-07-03 17:06] LABS: Alanine Aminotransferase 41 U/L (0-33); Albumin Level 4.5 g/dL (3.5-5.2); Alkaline Phosphatase 66 U/L (35-105); Anion Gap 12.9 (5-19); Aspartate Amino Transferase 24 U/L (0-32); Blood Urea Nitrogen 12 mg/dL (6-20); Calcium 8.6 mg/dL (8.5-10.5); Carbon Dioxide 27 mmol/L (22-29); Chloride 103 mmol/L (98-107); Chol HDL Ratio 3.13 mg/dL (0.0-4.40); Cholesterol 119 mg/dL (0-200); Globulin 3.2 g/dL (1.3-4.6); Glomerular Filtration Rate 146.9 mL/min (90-130); Glucose 111 mg/dL (65-115); HDL Cholesterol 38 mg/dL (60-100); LDL Cholesterol Calculated 50 mg/dL (50-129); LDL HDL Ratio 1.32 RATIO (0.00-3.22); Osmolality Calculated 288 mOsm/kg (285-295); Potassium 3.9 mmol/L (3.5-5.1); Sodium 139 mmol/L (136-145); Total Bilirubin 0.2 mg/dL (0.15-1.2); Total Protein 7.7 g/dL (6.6-8.7); Triglycerides 156 mg/dL (0-150)
[2023-07-03 17:07] LABS: Creatinine Urine, Random 95 mg/dL (28-217); Microalbum Creatinine Ratio Ur 11 mg/dL (0-20); Microalbumin Random Urine 1 ug/dL (0-20)
== END 2023-07-03 16:11 | disposition home or self-care (01) ==
LOC: LAB 16:12
PROVIDERS: PCP Nurse Practitioner Family; Visit Provider Internal Medicine
DX: E66.01 Morbid (severe) obesity due to excess calories (principal); E78.00 Pure hypercholesterolemia, unspecified
CPT/HCPCS: 36415; 80053; 80061; 82044; 83036

== ENCOUNTER → 2023-07-27 16:40 | Outpatient (BNVA) | payer OTHER, SELFPAY | PROVIDERS: PCP Nurse Practitioner Family; Visit Provider Emergency Medicine | DX: R30.0 Dysuria (principal); Z20.2 Contact with and (suspected) exposure to infections with a predominantly sexual mode of transmission | CPT/HCPCS: 81000; 87491; 87591 ==

== ENCOUNTER → 2023-08-07 11:20 | Outpatient (BNVA) | payer OTHER, SELFPAY | PROVIDERS: PCP Nurse Practitioner Family; Visit Provider Obstetrics & Gynecology | DX: R10.2 Pelvic and perineal pain (principal) | CPT/HCPCS: 76830; 76856; 84315; 87086 ==

== ENCOUNTER → 2023-08-19 16:20 | Outpatient (BNVA) | payer OTHER, SELFPAY | PROVIDERS: PCP Nurse Practitioner Family; Visit Provider Obstetrics & Gynecology | DX: R10.2 Pelvic and perineal pain (principal); R39.9 Unspecified symptoms and signs involving the genitourinary system | CPT/HCPCS: 84315; 87086 ==

== ENCOUNTER 2023-10-07 15:24 | Outpatient (CLI) | payer OTHER, SELFPAY ==
[2023-10-07 16:34] LABS: Estmated Average Glucose 143; Hemoglobin A1C 6.6 % (4.0-6.0)
[2023-10-07 17:10] LABS: 25 Hydroxy Vitamin D 23 ng/mL (30-100); Alanine Aminotransferase 28 U/L (0-33); Albumin Level 4.7 g/dL (3.5-5.2); Alkaline Phosphatase 73 U/L (35-105); Anion Gap 16.7 (5-19); Aspartate Amino Transferase 19 U/L (0-32); Blood Urea Nitrogen 9 mg/dL (6-20); Calcium 9.9 mg/dL (8.5-10.5); Carbon Dioxide 23 mmol/L (22-29); Chloride 99 mmol/L (98-107); Chol HDL Ratio 2.91 mg/dL (0.0-4.40); Cholesterol 125 mg/dL (0-200); Globulin 3.8 g/dL (1.3-4.6); Glucose 100 mg/dL (65-115); HDL Cholesterol 43 mg/dL (60-100); LDL Cholesterol Calculated 62 mg/dL (50-129); LDL HDL Ratio 1.44 RATIO (0.00-3.22); Osmolality Calculated 279 mOsm/kg (285-295); Potassium 3.7 mmol/L (3.5-5.1); Sodium 135 mmol/L (136-145); Total Bilirubin 0.2 mg/dL (0.15-1.2); Total Protein 8.5 g/dL (6.6-8.7); Triglycerides 100 mg/dL (0-150)
[2023-10-07 17:22] LABS: Creatinine Urine, Random 25 mg/dL (28-217); Microalbum Creatinine Ratio Ur 40 mg/dL (0-20); Microalbumin Random Urine 1 ug/dL (0-20)
== END 2023-10-07 15:25 | disposition home or self-care (01) ==
LOC: LAB 15:26
PROVIDERS: PCP Nurse Practitioner Family; Visit Provider Internal Medicine
DX: E78.00 Pure hypercholesterolemia, unspecified (principal); E66.01 Morbid (severe) obesity due to excess calories
CPT/HCPCS: 36415; 80053; 80061; 82044; 82306; 83036

== ENCOUNTER 2023-10-08 15:35 | Outpatient (CLI) | payer OTHER, SELFPAY ==
[2023-10-10 15:33] LABS: Chlamydia Trachomatis RNA TMA DETECTED (NOT DETECTED); Neisseria Gonorrhoeae RNA, TMA NOT DETECTED (NOT DETECTED)
== END 2023-10-08 15:36 | disposition home or self-care (01) ==
LOC: LAB 15:36
PROVIDERS: PCP Nurse Practitioner Family; Visit Provider Internal Medicine
DX: Z20.2 Contact with and (suspected) exposure to infections with a predominantly sexual mode of transmission (principal)
CPT/HCPCS: 87491; 87591

== ENCOUNTER → 2023-10-18 13:14 | Outpatient (BNVA) | payer OTHER, SELFPAY | PROVIDERS: PCP Nurse Practitioner Family; Visit Provider Nurse Practitioner Women's Health | DX: Z11.3 Encounter for screening for infections with a predominantly sexual mode of transmission (principal); R30.0 Dysuria | CPT/HCPCS: 81000; 84315; 86592; 86803; 87340; 87491; 87591; 87806 ==

== ENCOUNTER → 2023-11-04 15:00 | Outpatient (BNVA) | payer OTHER, SELFPAY | PROVIDERS: PCP Nurse Practitioner Family; Visit Provider Nurse Practitioner Women's Health | DX: R30.0 Dysuria (principal) | CPT/HCPCS: 84315; 87086 ==

== ENCOUNTER → 2023-11-22 10:08 | Outpatient (BNVA) | payer OTHER, SELFPAY | PROVIDERS: PCP Nurse Practitioner Family; Visit Provider Nurse Practitioner Women's Health | DX: R39.9 Unspecified symptoms and signs involving the genitourinary system (principal); Z12.4 Encounter for screening for malignant neoplasm of cervix; A74.9 Chlamydial infection, unspecified; A59.9 Trichomoniasis, unspecified; R10.2 Pelvic and perineal pain | CPT/HCPCS: 81000; 87086; 87491; 87591; 87624 ==

== ENCOUNTER → 2024-01-02 10:04 | Outpatient (BNVA) | payer OTHER, SELFPAY | PROVIDERS: PCP Nurse Practitioner Family; Visit Provider Nurse Practitioner Women's Health | DX: N34.2 Other urethritis (principal); A59.9 Trichomoniasis, unspecified; A74.9 Chlamydial infection, unspecified | CPT/HCPCS: 81000; 87491; 87591 ==

== ENCOUNTER → 2024-03-18 15:24 | Outpatient (BNVA) | payer OTHER, SELFPAY | PROVIDERS: PCP Nurse Practitioner Family; Referring Provider Nurse Practitioner Women's Health; Visit Provider Nurse Practitioner Women's Health | DX: R30.0 Dysuria (principal) | CPT/HCPCS: 81000; 87086; 87491; 87591; 87661 ==

== ENCOUNTER → 2024-04-09 09:46 | Outpatient (BNVA) | payer OTHER, SELFPAY | PROVIDERS: PCP Nurse Practitioner Family; Visit Provider Nurse Practitioner Family | DX: J02.9 Acute pharyngitis, unspecified (principal); R50.9 Fever, unspecified; J06.9 Acute upper respiratory infection, unspecified | CPT/HCPCS: 87400; 87426; 87880 ==

== ENCOUNTER 2024-06-25 10:49 | Outpatient (CLI) | payer OTHER, SELFPAY ==
[2024-06-25 11:50] LABS: Alanine Aminotransferase 38 U/L (0-33); Albumin Level 4.4 g/dL (3.5-5.2); Alkaline Phosphatase 69 U/L (35-105); Aspartate Amino Transferase 20 U/L (0-32); Blood Urea Nitrogen 9 mg/dL (6-20); Calcium 9.5 mg/dL (8.5-10.5); Carbon Dioxide 25 mmol/L (22-29); Chloride 100 mmol/L (98-107); Chol HDL Ratio 3.74 mg/dL (0.0-4.40); Cholesterol 142 mg/dL (0-200); Globulin 3.6 g/dL (1.3-4.6); Glomerular Filtration Rate 188.7 mL/min (90-130); Glucose 181 mg/dL (65-115); HDL Cholesterol 38 mg/dL (60-100); LDL Cholesterol Calculated 75 mg/dL (50-129); LDL HDL Ratio 1.97 RATIO (0.00-3.22); Osmolality Calculated 287 mOsm/kg (285-295); Sodium 137 mmol/L (136-145); Total Bilirubin 0.2 mg/dL (0.15-1.2); Triglycerides 146 mg/dL (0-150)
[2024-06-25 11:53] LABS: Creatinine Urine, Random 103 mg/dL (28-217); Microalbum Creatinine Ratio Ur 29 mg/dL (0-20); Microalbumin Random Urine 3 ug/dL (0-20)
[2024-06-25 11:55] LABS: Estmated Average Glucose 209; Hemoglobin A1C 8.9 % (4.0-6.0)
[2024-06-25 12:04] LABS: 25 Hydroxy Vitamin D 15 ng/mL (30-100)
== END 2024-06-25 10:50 | disposition home or self-care (01) ==
PROVIDERS: PCP Nurse Practitioner Family; Visit Provider Internal Medicine
DX: E55.9 Vitamin D deficiency, unspecified (principal)
CPT/HCPCS: 36415; 80053; 80061; 82044; 82306; 83036

== ENCOUNTER 2024-10-31 06:05 | Emergency (ER) | payer OTHER, SELFPAY ==
--- OUTSIDE RECORDS SUMMARY | 2024-10-31 06:08 | XMS_ITS | Clinical Summary ---
Author Organization [facility] Address [address] [place]illo: [place] [address] Care Team Providers Care Pediatric Dietician Name Role Phone Unavailable Primary Care Provider Unavailabl e Allergies No known active allergies Medications norgestimate-eth inyl estradioL 0.25 mg-35 mcg tabletIndication s:Abnormal uterine bleeding (AUB) Take 1 Tablet by mouth daily. 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 Gender Identity Not on file Sexual Orientation Not on file Last Filed Vital Signs Vital Sign Reading Time Taken Comments Blood Pressure 118/58 10/30/2019 9:34 AM CDT Pulse - - Temperature - - Respiratory Rate - - Oxygen Saturation - - Inhaled Oxygen Concentration - - Weight 142.4 kg (314 lb) 10/30/2019 9:34 AM CDT Height 179.1 cm (5' 10.5 ) 10/30/2019 9:34 AM CD T Body Mass Index 44.42 10/30/2019 9:34 AM CDT Plan of Treatment Health Maintenance Due Date Last Done Comments HPV VACCINES (1 - 3-dose series) 2009 DTAP/TDAP/TD VACCINES (1 - Tdap) 2013 HEPATITIS B VACCINES (1 of 3 - 19+ 3-dose series) 11/09 CERVICAL CANCER SCREENING 11/22/2015 HPV/Cotest (21-29) 11/22/2015 PAP SMEAR 11/22/2015 INFLUENZA VACCINE (#1) 2024 HPV/Cotest (30-65) 2024
--- OUTSIDE RECORDS SUMMARY | 2024-10-31 06:08 | XMS_ITS | Clinical Summary ---
Author Organization [facility] Address [address] [place] [address] Care Team Providers Care Preanalytics Team Lead Name Role Phone Unavailable Primary Care Provider Unavailabl e Allergies No known active allergies Medications norgestimate-eth inyl estradioL (Sprintec, 28,) 0.25 mg-35 mcg tabletIndication s:Abnormal uterine bleeding (AUB) Take 1 Tablet by mouth daily. 28 Tablet 12 10/30/2019 Active Active Problems No known active problems Social History Tobacco Use Types Packs/Day Years Used Date Smoking Tobacco: Never Smokeless Tobacco: Never Alcohol Use Standard Drinks/Week Comments Yes 0 (1 standard drink = 0.6 oz pur e alcohol) Comments Unknown Sex and Gender Information Value Date Recorded Sex Assigned at Not on file Legal Sex Female 12:48 PM CDT Gender Identity Not on file Sexual Orientation [...]
[2024-10-31 06:09] VITALS: BP 165/94; PULSE 83; RESP 16; TEMP 36.6; O2SAT 98; BMI 42.3
--- NOTE | 2024-10-31 06:28 | W.ED.BACK ---
Documented by User: Dillon Reyna Grover, 10/31/24 19:14 HPI - Back Pain/Injury General: Chief Complaint: Back Pain/Injury Stated Complaint: Neck Spine and back Extrime Pain Time Seen by Provider: 10/31/24 06:18 History of Present Illness: Patient is a 28-year-old female presenting with extreme neck stiffness and pain that she rates as 8-9/10 in severity this morning. Symptoms have been present for at least three days, during which she has been taking ibuprofen and Tylenol around the clock. The pain is located in the neck and upper back, radiating into her chest and right shoulder with occasional shooting pain down her right arm. She reports significant limitation in neck movement, particularly with forward flexion. Patient also notes difficulty swallowing this morning and states the pain has been progressively radiating more into her chest and shoulder. Associated symptoms include fever for the past 20 hours, nausea (which she attributes possibly to other medications), and dizziness. She describes feeling like her spine was compressed when standing up this morning. Patient denies cough, sore throat, trauma, or headache at present. She reports a history of cervical nerve issues occurring periodically over the past 10 years, typically once yearly, but notes this is her second episode this year. She also reports occasional numbness and tingling, which she states could be related to her diabetes. Related Data Home Medications ?Medication ?Instructions ?Recorded ?Confirmed acetaminophen 500 mg tablet 1,000 mg PO Q4H PRN Pain 11/25/20 10/31/24 (Tylenol Extra Strength) ibuprofen 200 mg tablet 200 mg PO Q6H PRN Pain 10/31/24 10/31/24 metformin 500 mg tablet 500 mg PO BID 10/31/24 10/31/24 tirzepatide 7.5 mg/0.5 mL 7.5 mg SUBCUT Q7D 10/31/24 10/31/24 subcutaneous pen injector (Mounjaro) Previous Rx's ?Medication ?Instructions ?Recorded tirzepatide 10 mg/0.5 mL 10 mg (0.5 mL) SUBCUT Q7D 15 days 10/20/24 subcutaneous pen injector #1.5 mL (Mounjaro) diclofenac sodium 75 mg 75 mg PO Q12H PRN pain #20 tabs 10/31/24 tablet,delayed release hydrocodone 5 mg-acetaminophen 325 1 tab PO Q6H PRN pain #12 tabs 10/31/24 mg tablet prednisone 20 mg tablet 20 mg PO TID #15 tabs 10/31/24 tizanidine 4 mg tablet 4 mg PO Q6H PRN muscle spasticity 10/31/24 #20 tabs Allergies Allergy/AdvReac Type Severity Reaction Status Date / Time No Known Allergies Allergy Verified 06/26/24 13:11 PFSH ED PFSH: Medical History Irregular menses No pertinent past medical history neghx: htn,dm,thyroid,dvt/pe PCP: None Surgical History Status post exploratory laparotomy History of right oophorectomy Family History Grandmother Diabetes Maternal Hypertension Maternal Thyroid disease Maternal Father Diabetes Mother Heart disease Hypertension Denies family history of Colon cancer Ovarian cancer Clotting disorder Hypercholesteremia Hyperlipidemia Breast cancer Anesthesia complication Bleeding disorder Uterine cancer Stroke Social History Smoking and tobacco/nicotine status: never used tobacco/nicotine Physical Exam Const: GENERAL APPEARANCE: cooperative; not ill appearing HENMT: COMMON NORMALS: normocephalic and atraumatic HEAD & SCALP: normocephalic and atraumatic FACE & SINUS: normal facial exam and face symmetric Eye: COMMON NORMALS: Equal, round and reactive pupils present, EOMs intact bilaterally and conjunctivae normal ALIGNMENT: Yes alignment normal CONJUNCTIVA: Yes conjunctivae normal PUPIL: Yes Equal, round and reactive pupils present Neck/C-Spine: GENERAL: Yes trachea midline, No anterior neck swelling and Yes Meningeal signs present CERVICAL SPINE: Yes pain with cervical ROM, Yes loss of normal cervical lordosis, Yes Cervical spine tenderness, No step off deformity, Yes Paracervical muscle tenderness, Yes Paracervical spasm and Yes Trapezius muscle tenderness Chest: CHEST: Yes Symmetrical chest wall rise Resp: COMMON NORMALS: normal respiratory effort and clear to auscultation bilaterally AUSCULTATION: clear to auscultation bilaterally Cardio: COMMON NORMALS: regular rate and regular rhythm RATE: regular rate RHYTHM: regular rhythm Course Vital Signs: Vital signs: Vital Signs Temperature 97.8 F 10/31/24 06:09 Pulse Rate 83 10/31/24 06:09 Respiratory Rate 17 10/31/24 07:02 Blood Pressure 165/94 10/31/24 06:09 Pulse Oximetry 98 10/31/24 07:02 Oxygen Delivery Me thod Room Air 10/31/24 06:09 MDM - Back Pain/Injury Labs 10/31/24 06:40 10/31/24 06:40 Radiology Impressions Cervical Spine CT 10/31/24 06:35 IMPRESSION: 1. No acute fracture or malalignment of the cervical spine. 2. Disc osteophyte complexes at C3-C4 and C5-C6 likely resulting in at least mild spinal canal stenosis and at least mild right lateral recess/neural foraminal stenosis at C5-C6. Recommend clinical correlation and consider MRI for further evaluation if clinically warranted/appropriate. Laboratory Results WBC 9.89 10^3/uL (3.29-11.43) 10/31/24 06:40 RBC 4.81 10^6/uL (3.85-5.65) 10/31/24 06:40 Hgb 12.60 g/dL (11.27-16.99) 10/31/24 06:40 Hct 39.8 % (36-47) 10/31/24 06:40 MCV 82.7 fl (85-98) L 10/31/24 06:40 MCH 26.2 pg (27-33) L 10/31/24 06:40 MCHC 31.7 g/dL (30-55) 10/31/24 06:40 RDW 12.9 % (12.1-15.1) 10/31/24 06:40 Plt Count 415 10^3/cmm (157-399) H 10/31/24 06:40 MPV 10.6 fL (7.4-10.4) H 10/31/24 06:40 Neut % (Auto) 61.3 % 10/31/24 06:40 Lymph % (Auto) 27.3 % 10/31/24 06:40 [place] % (Auto) 6.5 % 10/31/24 06:40 Eos % (Auto) 3.8 % 10/31/24 06:40 Baso % (Auto) 0.8 % 10/31/24 06:40 Neut # (Auto) 6.06 10^3/uL (1.8-7.7) 10/31/24 06:40 Lymph # (Auto) 2.7 10^3/uL (0.8-4.8) 10/31/24 06:40 [place] # (Auto) 0.6 10^3/uL (0.2-0.9) 10/31/24 06:40 Eos # (Auto) 0.4 10^3/uL (0.0-0.8) 10/31/24 06:40 Baso # (Auto) 0.1 10^3/uL (0.0-0.1) 10/31/24 06:40 Nucleated RBC % (auto) 0 % 10/31/24 06:40 Nucleated RBCs # 0.0 /100WBC 10/31/24 06:40 ESR 20 mm/hr (0-15) H 10/31/24 06:40 Sodium 141 mmol/L (136-145) 10/31/24 06:40 Potassium 4.7 mmol/L (3.5-5.1) 10/31/24 06:40 Chloride 104 mmol/L (98-107) 10/31/24 06:40 Carbon Dioxide 23 mmol/L (22-29) 10/31/24 06:40 Anion Gap 18.7 (5-19) 10/31/24 06:40 BUN 14 mg/dL (6-20) 10/31/24 06:40 Creatinine 0.5 mg/dL (0.5-0.9) 10/31/24 06:40 GFR Calculation 145.9 mL/min (90-130) H 10/31/24 06:40 Glucose 150 mg/dL (65-115) H 10/31/24 06:40 Calculated Osmolality 295 mOsm/kg (285-295) 10/31/24 06:40 Calcium 9.5 mg/dL (8.5-10.5) 10/31/24 06:40 Total Bilirubin 0.3 mg/dL (0.15-1.2) 10/31/24 06:40 AST 16 U/L (0-32) 10/31/24 06:40 ALT 31 U/L (0-33) 10/31/24 06:40 Alkaline Phosphatase 72 U/L (35-105) 10/31/24 06:40 C-Reactive Protein 21.4 mg/L (0.0-4.9) H 10/31/24 06:40 Total Protein 8.4 g/dL (6.6-8.7) 10/31/24 06:40 Albumin 4.7 g/dL (3.5-5.2) 10/31/24 06:40 Globulin 3.7 g/dL (1.3-4.6) 10/31/24 06:40 HCG, Qual Negative (Negative) 10/31/24 06:40 Discharge Plan Discharge Patient Disposition: Home Clinical Impression: Cervical disc disorder with radiculopathy Condition: Stable Prescriptions: New tizanidine 4 mg tablet 4 mg PO Q6H PRN (Reason: muscle spasticity) Qty: 20 0RF Rx Instructions: do not exceed 3 doses per 24 hrs hydrocodone-acetaminophen 5-325 mg tablet 1 tab PO Q6H PRN (Reason: pain) Qty: 12 0RF diclofenac sodium 75 mg tablet,delayed release (DR/EC) 75 mg PO Q12H PRN (Reason: pain) Qty: 20 0RF prednisone 20 mg tablet 20 mg PO TID Qty: 15 0RF Rx Instructions: 1 p.o. 3 times daily x3 days, 1 p.o. twice daily x2 days, 1 p.o. daily x2 days No Action Mounjaro 10 mg/0.5 mL pen injector 10 mg SUBCUT Q7D 15 Days Qty: 1.5 0RF acetaminophen [Tylenol Extra Strength] 500 mg Tablet 1,000 mg PO Q4H PRN (Reason: Pain) ibuprofen 200 mg Tablet 200 mg PO Q6H PRN (Reason: Pain) Mounjaro 7.5 mg/0.5 mL pen injector 7.5 mg SUBCUT Q7D Rx Instructions: metformin 500 mg tablet 500 mg PO BID Discharge Orders: Discharge ED (Routine); Ordered 10/31/24 Ordered By: César Bang Referrals: Navya Marquez, ADOLESCENT MEDICINE SPECIALIST [Primary Care Provider, Nurse Practitioner] Discharge Diet: Usual diet Discharge Activity: Increase activity as tolerated Patient Instructions: Opioid Safety, Pain Management, Patient Portal & Nusrat Instructions Activity Restrictions/Additional Instructions: [facility]. It is very important that you follow up as instructed or that you return to the Emergency Department should you have concerns or if your condition changes or worsens in any way. You are seen in the emergency room for neck pain radiating into your arms. CT shows some disc disease and arthritic changes. Your white count was normal sed rate was only minimally elevated. Will discharge you home on diclofenac hydrocodone and tizanidine. You should follow-up with orthopedic spine clinic case management make arrangements your symptoms worsen or change return to the emergency room Print Language: Mongolian Sign Out Sign Out Data: Patient Sign Out occurred on 10/31/24 at 07:21. Patient's care was discussed, and care was transferred from Dillon Ness DO to César Bang DO. Coding Level of Care Code ED Life Skills Educator for Chg Fwd Documented by User: César Bang DO 10/31/24 10:57 HPI - Back Pain/Injury General: Chief Complaint: Back Pain/Injury Stated Complaint: Neck Spine and back Extrime Pain Time Seen by Provider: 10/31/24 06:18 Related Data Home Medications ?Medication ?Instructions ?Recorded ?Confirmed acetaminophen 500 mg tablet 1,000 mg PO Q4H PRN Pain 11/25/20 10/31/24 (Tylenol Extra Strength) ibuprofen 200 mg tablet 200 mg PO Q6H PRN Pain 10/31/24 10/31/24 metformin 500 mg tablet 500 mg PO BID 10/31/24 10/31/24 tirzepatide 7.5 mg/0.5 mL 7.5 mg SUBCUT Q7D 10/31/24 10/31/24 subcutaneous pen injector (Mounjaro) Previous Rx's ?Medication ?Instructions ?Recorded tirzepatide 10 mg/0.5 mL 10 mg (0.5 mL) SUBCUT Q7D 15 days 10/20/24 subcutaneous pen injector #1.5 mL (Mounjaro) diclofenac sodium 75 mg 75 mg PO Q12H PRN pain #20 tabs 10/31/24 tablet,delayed release hydrocodone 5 mg-acetaminophen 325 1 tab PO Q6H PRN pain #12 tabs 10/31/24 mg tablet prednisone 20 mg tablet 20 mg PO TID #15 tabs 10/31/24 tizanidine 4 mg tablet 4 mg PO Q6H PRN muscle spasticity 10/31/24 #20 tabs Allergies Allergy/AdvReac Type Severity Reaction Status Date / Time No Known Allergies Allergy Verified 06/26/24 13:11 PFSH ED PFSH: Medical History Irregular menses No pertinent past medical history neghx: htn,dm,thyroid,dvt/pe PCP: None Surgical History Status post exploratory laparotomy History of right oophorectomy Family History Grandmother Diabetes Maternal Hypertension Maternal Thyroid disease Maternal Father Diabetes Mother Heart disease Hypertension Denies family history of Colon cancer Ovarian cancer Clotting disorder Hypercholesteremia Hyperlipidemia Breast cancer Anesthesia complication Bleeding disorder Uterine cancer Stroke Social History Smoking and tobacco/nicotine status: never used tobacco/nicotine Course Vital Signs: Vital signs: Vital Signs Temperature 97.8 F 10/31/24 06:09 Pulse Rate 83 10/31/24 06:09 Respiratory Rate 17 10/31/24 07:02 Blood Pressure 165/94 10/31/24 06:09 Pulse Oximetry 98 10/31/24 07:02 Oxygen Delivery Me thod Room Air 10/31/24 06:09 MDM - Back Pain/Injury Medical Decision Making Care assumed at change of shift. White count not elevated sed rate minimally elevated patient is feeling much better than medications was given by Dr. Ness. Will discharge patient home she says her blood sugars have been relatively well-controlled recently we will go and put her on a steroid taper give her pain medications and refer her to orthopedic spine surgery Medical Records I reviewed the patient's medical records. Labs I reviewed the patient's lab results. 10/31/24 06:40 10/31/24 06:40 Radiology Impressions Cervical Spine CT 10/31/24 06:35 IMPRESSION: 1. No acute fracture or malalignment of the cervical spine. 2. Disc osteophyte complexes at C3-C4 and C5-C6 likely resulting in at least mild spinal canal stenosis and at least mild right lateral recess/neural foraminal stenosis at C5-C6. Recommend clinical correlation and consider MRI for further evaluation if clinically warranted/appropriate. Laboratory Results WBC 9.89 10^3/uL (3.29-11.43) 10/31/24 06:40 RBC 4.81 10^6/uL (3.85-5.65) 10/31/24 06:40 Hgb 12.60 g/dL (11.27-16.99) 10/31/24 06:40 Hct 39.8 % (36-47) 10/31/24 06:40 MCV 82.7 fl (85-98) L 10/31/24 06:40 MCH 26.2 pg (27-33) L 10/31/24 06:40 MCHC 31.7 g/dL (30-55) 10/31/24 06:40 RDW 12.9 % (12.1-15.1) 10/31/24 06:40 Plt Count 415 10^3/cmm (157-399) H 10/31/24 06:40 MPV 10.6 fL (7.4-10.4) H 10/31/24 06:40 Neut % (Auto) 61.3 % 10/31/24 06:40 Lymph % (Auto) 27.3 % 10/31/24 06:40 [place] % (Auto) 6.5 % 10/31/24 06:40 Eos % (Auto) 3.8 % 10/31/24 06:40 Baso % (Auto) 0.8 % 10/31/24 06:40 Neut # (Auto) 6.06 10^3/uL (1.8-7.7) 10/31/24 06:40 Lymph # (Auto) 2.7 10^3/uL (0.8-4.8) 10/31/24 06:40 [place] # (Auto) 0.6 10^3/uL (0.2-0.9) 10/31/24 06:40 Eos # (Auto) 0.4 10^3/uL (0.0-0.8) 10/31/24 06:40 Baso # (Auto) 0.1 10^3/uL (0.0-0.1) 10/31/24 06:40 Nucleated RBC % (auto) 0 % 10/31/24 06:40 Nucleated RBCs # 0.0 /100WBC 10/31/24 06:40 ESR 20 mm/hr (0-15) H 10/31/24 06:40 Sodium 141 mmol/L (136-145) 10/31/24 06:40 Potassium 4.7 mmol/L (3.5-5.1) 10/31/24 06:40 Chloride 104 mmol/L (98-107) 10/31/24 06:40 Carbon Dioxide 23 mmol/L (22-29) 10/31/24 06:40 Anion Gap 18.7 (5-19) 10/31/24 06:40 BUN 14 mg/dL (6-20) 10/31/24 06:40 Creatinine 0.5 mg/dL (0.5-0.9) 10/31/24 06:40 GFR Calculation 145.9 mL/min (90-130) H 10/31/24 06:40 Glucose 150 mg/dL (65-115) H 10/31/24 06:40 Calculated Osmolality 295 mOsm/kg (285-295) 10/31/24 06:40 Calcium 9.5 mg/dL (8.5-10.5) 10/31/24 06:40 Total Bilirubin 0.3 mg/dL (0.15-1.2) 10/31/24 06:40 AST 16 U/L (0-32) 10/31/24 06:40 ALT 31 U/L (0-33) 10/31/24 06:40 Alkaline Phosphatase 72 U/L (35-105) 10/31/24 06:40 C-Reactive Protein 21.4 mg/L (0.0-4.9) H 10/31/24 06:40 Total Protein 8.4 g/dL (6.6-8.7) 10/31/24 06:40 Albumin 4.7 g/dL (3.5-5.2) 10/31/24 06:40 Globulin 3.7 g/dL (1.3-4.6) 10/31/24 06:40 HCG, Qual Negative (Negative) 10/31/24 06:40 All radiology interpretation(s) finalized by discharge Discharge Plan Discharge Patient Disposition: Home Clinical Impression: Cervical disc disorder with radiculopathy Condition: Stable Prescriptions: New tizanidine 4 mg tablet 4 mg PO Q6H PRN (Reason: muscle spasticity) Qty: 20 0RF Rx Instructions: do not exceed 3 doses per 24 hrs hydrocodone-acetaminophen 5-325 mg tablet 1 tab PO Q6H PRN (Reason: pain) Qty: 12 0RF diclofenac sodium 75 mg tablet,delayed release (DR/EC) 75 mg PO Q12H PRN (Reason: pain) Qty: 20 0RF prednisone 20 mg tablet 20 mg PO TID Qty: 15 0RF Rx Instructions: 1 p.o. 3 times daily x3 days, 1 p.o. twice daily x2 days, 1 p.o. daily x2 days No Action Mounjaro 10 mg/0.5 mL pen injector 10 mg SUBCUT Q7D 15 Days Qty: 1.5 0RF acetaminophen [Tylenol Extra Strength] 500 mg Tablet 1,000 mg PO Q4H PRN (Reason: Pain) ibuprofen 200 mg Tablet 200 mg PO Q6H PRN (Reason: Pain) Mounjaro 7.5 mg/0.5 mL pen injector 7.5 mg SUBCUT Q7D Rx Instructions: Saturday' metformin 500 mg tablet 500 mg PO BID Discharge Orders: Discharge ED (Routine); Ordered 10/31/24 Ordered By: César Bang Referrals: Navya Marquez, ADOLESCENT MEDICINE SPECIALIST [Primary Care Provider, Nurse Practitioner] Discharge Diet: Usual diet Discharge Activity: Increase activity as tolerated Patient Instructions: Opioid Safety, Pain Management, Patient Portal & Nusrat Instructions Activity Restrictions/Additional Instructions: Thank you for choosing [facility] for your healthcare needs today. It is very important that you follow up as instructed or that you return to the Emergency Department should you have concerns or if your condition changes or worsens in any way. You are seen in the emergency room for neck pain radiating into your arms. CT shows some disc disease and arthritic changes. Your white count was normal sed rate was only minimally elevated. Will discharge you home on diclofenac hydrocodone and tizanidine. You should follow-up with orthopedic spine clinic case management make arrangements your symptoms worsen or change return to the emergency room Print Language: Mongolian Sign Out Sign Out Data: Patient Sign Out occurred on 10/31/24 at 07:21. Patient's care was discussed, and care was transferred from Dillon Ness DO to César Bang DO. Coding Level of Care Code ED Life Skills Educator for Raghu Art
--- NOTE | 2024-10-31 06:35 | CTR_ITS ---
PROCEDURE INFORMATION: Exam: CT Cervical Spine Without Contrast Exam date and time: 10/31/2024 6:40 AM Age: 28 years old Clinical indication: Neck pain TECHNIQUE: Imaging protocol: Computed tomography of the cervical spine without contrast. Radiation optimization: All CT scans at this facility use at least one of these dose optimization techniques: automated exposure control; mA and/or kV adjustment per patient size (includes targeted exams where dose is matched to clinical indication); or iterative reconstruction. COMPARISON: CR XR chest 1V portable [id number] 11/25/2020 2:01 PM RADIATION DOSE METRICS: Total DLP (mGy-cm): 735.17 FINDINGS: Bones: Straightening of the usual cervical lordosis likely related to patient positioning or muscle spasm. No spondylolisthesis. Vertebral body heights maintained. No evidence of acute fracture. Disc osteophyte complexes at C3-C4 and C5-C6 likely resulting in at least mild spinal canal stenosis and at least mild right lateral recess/neural foraminal stenosis at C5-C6. Intervertebral disc spaces maintained. No significant facet arthropathy. Craniocervical junction intact. Lungs: Lung apices are minimally included within the field of view although are grossly unremarkable. Soft tissues: Unremarkable. CT/CT cervical spin wo con* [id number] IMPRESSION: 1. No acute fracture or malalignment of the cervical spine. 2. Disc osteophyte complexes at C3-C4 and C5-C6 likely resulting in at least mild spinal canal stenosis and at least mild right lateral recess/neural foraminal stenosis at C5-C6. Recommend clinical correlation and consider MRI for further evaluation if clinically warranted/appropriate.
[2024-10-31 07:01] LABS: Hematocrit 39.8 % (36-47); Hemoglobin 12.60 g/dL (11.27-16.99); Mean Corpuscular HGB Conc 31.7 g/dL (30-55); Mean Corpuscular Hemoglobin 26.2 pg (27-33); Mean Corpuscular Volume 82.7 fl (85-98); Nucleated Red Blood Cells % 0 %; Platelet Count 415 10^3/cmm (157-399); Red Blood Count 4.81 10^6/uL (3.85-5.65); White Blood Count 9.89 10^3/uL (3.29-11.43)
[2024-10-31 07:02] VITALS: RESP 17; O2SAT 98
[2024-10-31] MEDS: morphine 4 mg/mL SDV 1 mL IVP (07:02)
[2024-10-31] MEDS: orphenadrine 30 mg/mL Inj 2 mL 60 MG IVP (07:03)
[2024-10-31 07:05] LABS: HCG, Serum Qual Negative (Negative)
[2024-10-31 07:09] LABS: Alanine Aminotransferase 31 U/L (0-33); Albumin Level 4.7 g/dL (3.5-5.2); Alkaline Phosphatase 72 U/L (35-105); Anion Gap 18.7 (5-19); Aspartate Amino Transferase 16 U/L (0-32); Blood Urea Nitrogen 14 mg/dL (6-20); Calcium 9.5 mg/dL (8.5-10.5); Carbon Dioxide 23 mmol/L (22-29); Chloride 104 mmol/L (98-107); Creatinine Clr Calc Pharmacy 255.4138; Globulin 3.7 g/dL (1.3-4.6); Glucose 150 mg/dL (65-115); Osmolality Calculated 295 mOsm/kg (285-295); Potassium 4.7 mmol/L (3.5-5.1); Sodium 141 mmol/L (136-145); Total Protein 8.4 g/dL (6.6-8.7)
[2024-10-31] MEDS: ondansetron 2 mg/ML SDV 2 mL 4 MG IVP (07:10)
--- NOTE | 2024-11-02 10:20 | DCPLANNER ---
messaged ortho for er f/u
== END 2024-10-31 09:39 | disposition home or self-care (01) ==
PROVIDERS: Emergency Medicine; Emergency Provider Family Medicine; PCP Nurse Practitioner Family
DX: M54.12 Radiculopathy, cervical region (principal)
CPT/HCPCS: 72125; 80053; 84703; 85025; 85651; 86140; 96374; 96375; 99285; J1885; J2270; J2360; J2405

== ENCOUNTER 2024-11-02 11:05 | Outpatient (CLI) | payer OTHER, SELFPAY ==
[2024-11-02 12:04] LABS: Estmated Average Glucose 169; Hemoglobin A1C 7.5 % (4.0-6.0)
[2024-11-02 12:13] LABS: Alanine Aminotransferase 19 U/L (0-33); Albumin Level 4.3 g/dL (3.5-5.2); Alkaline Phosphatase 62 U/L (35-105); Anion Gap 16.6 (5-19); Aspartate Amino Transferase 11 U/L (0-32); Blood Urea Nitrogen 18 mg/dL (6-20); Calcium 9.1 mg/dL (8.5-10.5); Carbon Dioxide 20 mmol/L (22-29); Chloride 104 mmol/L (98-107); Cholesterol 127 mg/dL (0-200); Globulin 3.2 g/dL (1.3-4.6); Glucose 182 mg/dL (65-115); HDL Cholesterol 42 mg/dL (60-100); Osmolality Calculated 289 mOsm/kg (285-295); Potassium 4.6 mmol/L (3.5-5.1); Sodium 136 mmol/L (136-145); Total Protein 7.5 g/dL (6.6-8.7); Triglycerides 103 mg/dL (0-150)
[2024-11-02 13:02] LABS: Creatinine Urine, Random 98 mg/dL (28-217); Microalbum Creatinine Ratio Ur 10 mg/dL (0-20)
== END 2024-11-02 11:06 | disposition home or self-care (01) ==
LOC: LAB 11:07
PROVIDERS: PCP Nurse Practitioner Family; Visit Provider Internal Medicine
DX: E78.00 Pure hypercholesterolemia, unspecified (principal); E66.01 Morbid (severe) obesity due to excess calories; E55.9 Vitamin D deficiency, unspecified; N90.89 Other specified noninflammatory disorders of vulva and perineum
CPT/HCPCS: 36415; 80053; 80061; 82044; 83036

== ENCOUNTER → 2024-11-03 14:19 | Outpatient (BNVA) | payer OTHER, SELFPAY | PROVIDERS: PCP Nurse Practitioner Family; Visit Provider Orthopaedic Surgery | DX: M50.10 Cervical disc disorder with radiculopathy, unspecified cervical region (principal) | CPT/HCPCS: 72050 ==

== ENCOUNTER 2024-11-19 13:38 | Outpatient (RCR) | payer OTHER, SELFPAY | END 2024-12-08 23:59 | disposition home or self-care (01) | LOC: SPT 13:38 | PROVIDERS: PCP Nurse Practitioner Family; Visit Provider Orthopaedic Surgery | DX: M50.10 Cervical disc disorder with radiculopathy, unspecified cervical region (principal) | CPT/HCPCS: 97110; 97161 ==

== ENCOUNTER 2024-11-20 14:45 | Outpatient (CLI) | payer OTHER, SELFPAY ==
--- NOTE | 2024-11-20 15:15 | MR_ITS ---
WS: [id number] MRI CERVICAL SPINE NONCONTRAST HISTORY: Neck Pain COMPARISON: None available. Technique: Multiplanar, multisequence noncontrast imaging of the cervical spine. Normal cervical alignment with no compression fracture or significant disc space narrowing. Signal within the cervical cord is normal. Visualized posterior fossa is unremarkable. Craniocervical junction, C1 and C2 relationship, odontoid process and soft tissues are normal. C2-C3: Normal. C3-C4: Very slight disc bulging without stenosis. C4-C5: Normal. C5-C6: Very small RIGHT foraminal osteophyte. No significant stenosis. Very slight RIGHT foraminal narrowing. C6-C7: Normal. C7-T1: Normal. Paraspinal soft tissue are normal. MR/MR cervical spin wo con* [id number] IMPRESSION: 1. No acute cervical spine fracture. 2. No high-grade central or foraminal stenosis. 3. Very minimal RIGHT foraminal narrowing due to an osteophyte.
== END 2024-11-20 14:46 | disposition home or self-care (01) ==
LOC: RAD 14:51
PROVIDERS: PCP Nurse Practitioner Family; Visit Provider Orthopaedic Surgery
DX: M50.10 Cervical disc disorder with radiculopathy, unspecified cervical region (principal)
CPT/HCPCS: 72141

== ENCOUNTER → 2025-01-21 15:32 | Outpatient (BNVA) | payer OTHER, SELFPAY | PROVIDERS: PCP Nurse Practitioner Family; Visit Provider Nurse Practitioner Women's Health | DX: Z20.2 Contact with and (suspected) exposure to infections with a predominantly sexual mode of transmission (principal) | CPT/HCPCS: 86592; 86803; 87340; 87491; 87591; 87661; 87806 ==

== ENCOUNTER 2025-02-02 08:03 | Outpatient (CLI) | payer OTHER, SELFPAY ==
[2025-02-02 08:50] LABS: Estmated Average Glucose 137; Hemoglobin A1C 6.4 % (4.0-6.0)
[2025-02-02 09:00] LABS: Creatinine Urine, Random 149 mg/dL (28-217); Microalbum Creatinine Ratio Ur 7 mg/dL (0-20)
[2025-02-02 09:03] LABS: Alanine Aminotransferase 19 U/L (0-33); Albumin Level 4.3 g/dL (3.5-5.2); Alkaline Phosphatase 63 U/L (35-105); Anion Gap 16.2 (5-19); Aspartate Amino Transferase 17 U/L (0-32); Blood Urea Nitrogen 13 mg/dL (6-20); Calcium 8.7 mg/dL (8.5-10.5); Carbon Dioxide 22 mmol/L (22-29); Chloride 102 mmol/L (98-107); Cholesterol 127 mg/dL (0-200); Globulin 3.4 g/dL (1.3-4.6); Glucose 173 mg/dL (65-115); HDL Cholesterol 37 mg/dL (60-100); Osmolality Calculated 286 mOsm/kg (285-295); Potassium 4.2 mmol/L (3.5-5.1); Sodium 136 mmol/L (136-145); Total Protein 7.7 g/dL (6.6-8.7); Triglycerides 152 mg/dL (0-150)
== END 2025-02-02 08:04 | disposition home or self-care (01) ==
PROVIDERS: PCP Nurse Practitioner Family; Visit Provider Internal Medicine
DX: E11.9 Type 2 diabetes mellitus without complications (principal); E55.9 Vitamin D deficiency, unspecified
CPT/HCPCS: 36415; 80053; 80061; 82044; 82306; 83036